=== PATIENT | female | born 1975 | race Two or more races ===

== ENCOUNTER 2017-02-21 22:34 | Emergency (ER) | payer BC, SELFPAY ==
--- NOTE | 2017-02-22 00:02 | EDM.PDOC ---
ED HPI GENERAL MEDICAL PROBLEM - General Chief Complaint: ENT Problem Stated Complaint: PT HAS FISH BONE STUCK IN THROAT Time Seen by Provider: 02/21/17 22:49 Source of Information: Reports: Patient History Limitations: Reports: No Limitations - History of Present Illness INITIAL COMMENTS - FREE TEXT/NARRATIVE: HISTORY AND PHYSICAL: History of present illness: [41-year-old female now presents emergency department complaining of foreign body sensation in her throat. Patient states she was eating fish earlier tonight felt discomfort in her throat and thinks she has a fish bone there. Patient has no shortness of breath or difficulty breathing. Patient stable swallow with minimal discomfort. No voice changes no prior history of esophageal obstruction or difficulties] Review of systems: As per history of present illness and below otherwise all systems reviewed and negative. Past medical history: As per history of present illness and as reviewed below otherwise noncontributory. Surgical history: As per history of present illness and as reviewed below otherwise noncontributory. Social history: No reported history of drug or alcohol abuse. Family history: As per history of present illness and as reviewed below otherwise noncontributory. Physical exam: Well-appearing patient alert no stridor no tachypnea normal oropharynx with no visible foreign body no neck or throat asymmetry. Normal voice and tolerating secretions without difficulty HEENT: Normocephalic, atraumatic, pupils normal and symmetrical, supple neck, no meningismus, normal color Lungs: Normal and symmetrical chest wall excursion bilateral with no tachypnea or increased work of breathing, grossly normal chest exam. Clear lungs laterally , no stridor Heart: No tachycardia in triage Abdomen: Normal-appearing, nondistended, no visible mass or asymmetry Pelvis: Normal-appearing Genitourinary: Deferred Rectal exam: Deferred Extremities: Atraumatic, normal use and range of motion, no visible evidence of gross neurovascular compromise Neuro: Awake, alert, oriented. Normal and appropriate mental status. Cranial nerves grossly unremarkable. Motor function normal. Nonfocal neurologic exam. Diagnostics: [] Therapeutics: [] Impression: [] Plan: [Signs and symptoms consistent with suspected pharyngeal irritation with foreign body sensation. Discussed with patient and family possibility of a fish bone foreign body however this is typically not the case and her symptoms for most people are associated with a mild abrasion or injury to the oropharynx or esophagus. She has no respiratory symptoms whatsoever as well appearing. Soft tissue x-ray of the neck unremarkable. Patient and agree with outpatient follow-up and are aware to follow-up with our ear nose and throat doctor tomorrow] and to return immediately for new severe or worsening symptoms. Definitive disposition and diagnosis as appropriate pending reevaluation and review of above. Throat Pain Score (Numeric/FACES): 7 - Related Data Allergies Allergy/AdvReac Type Severity Reaction Status Date / Time aspirin Allergy Itching Verified 02/21/17 22:44 Home Meds: Home Meds . 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: , Spontaneous Psychiatric History: Reports: Anxiety Endocrine/Metabolic History: Reports: Diabetes, Gestational - Past Surgical History Head Surgeries/Procedures: Reports: None Female Surgical History: Reports: Section Social & Family History - Family History Family Medical History: Unobtainable - Tobacco Use Smoking Status *Q: Never Smoker Years of Tobacco use: 20 Packs/Tins Daily: 0.5 Used Tobacco, but Quit: Yes Month Tobacco Last Used: quit smoking 2 yrs ago - Alcohol Use Days Per Week of Alcohol Use: 0 - Recreational Drug Use Recreational Drug Use: No ED ROS GENERAL - Review of Systems Review Of Systems: See Below (Per history of present illness) ED EXAM, GENERAL - Physical Exam Exam: See Below (Per history of present illness) Course - Vital Signs Last Recorded V/S: Last Vital Signs Temp 36.2 C 02/21/17 22:41 Pulse 99 02/22/17 00:05 Resp 17 02/22/17 00:05 BP 127/81 02/22/17 00:05 Pulse Ox 98 02/22/17 00:05 - Orders/Labs/Meds Orders: Active Orders 24 hr Category Date Time Status Neck Soft Tissue [CR] Stat Exams 02/21/17 22:40 Taken Departure - Departure Time of Disposition: 23:58 Disposition: Home, Self-Care 01 Condition: good Clinical Impression: Foreign body sensation in throat - Discharge Information Instructions: Medical Screening Exam Referrals: PCP,None [Primary Care Provider] - Forms: ED Department Discharge Additional Instructions: You have foreign body sensation in your throat. It is possible that you could have a fishbone stuck in your throat however that is typically not the case in this situation. Most times of bone has caused a scratch or irritation in the throat and it's very uncomfortable as the throat is quite sensitive. Many patients believe they have a foreign body such as a fishbone in their throat when typically they've swallowed a completely after it caused an abrasion on the way down the esophagus. An x-ray tonight did not show any visible bone in your throat. Follow-up with our ear nose and throat doctor Dr. Isabelle Torres. Call at 9 AM for an appointment tomorrow for reevaluation and nasopharyngeal laryngoscopy as needed. Nasopharyngeal laryngoscopy is with a doctor puts a very small tube in your nose and then looks down the back of your throat to see if a foreign body might be there. Return to the emergency department for new severe or worsening symptoms particularly if you feel like you breathed something into your lungs. - My Orders Last 24 Hours: My Active Orders 02/21/17 22:40 Neck Soft Tissue [CR] Stat - Assessment/Plan Last 24 Hours: My Active Orders 02/21/17 22:40 Neck Soft Tissue [CR] Stat
[2017-02-22 00:10] VITALS: BP 127/81
--- NOTE | 2017-02-22 11:53 | CR ---
EXAM DATE: 02/21/17 PATIENT'S AGE: 41 Patient: ANTONINA SUBRAMANIAN Facility: [place], [place] Site . Site : [id number] Study: XRay ST Neck [id number] 11:23:30 PM Ordering Physician: Doctor Crowder Final Report: Soft tissue neck. 2 VIEWS INDICATION: Possible foreign body. IMPRESSION: Prevertebral soft tissues and airway are unremarkable. Prominent laryngeal calcification. No definite radiodense foreign body is suggested. Incidental small cervical ribs. Dictated by Tristian Gonzalez MD @ Feb 21 2017 11:29PM (Electronic Signature) Report Signed by Proxy. GAIL
== END 2017-02-22 00:07 | disposition home or self-care (01) ==
LOC: MW.ED 22:34
DX: R09.89 Other specified symptoms and signs involving the circulatory and respiratory systems (principal); F41.9 Anxiety disorder, unspecified; Z87.891 Personal history of nicotine dependence; Z88.6 Allergy status to analgesic agent
CPT/HCPCS: 70360; 70360-26; 99282; 99283

== ENCOUNTER 2018-06-16 23:46 | Observation (INO) | payer BC ==
--- NOTE | 2018-06-17 00:23 | EDM.PDOC ---
ED HPI GENERAL MEDICAL PROBLEM - General Chief Complaint: General Stated Complaint: PT HAS BODY PAIN Time Seen by Provider: 06/16/18 23:52 Source of Information: Reports: Patient History Limitations: Reports: No Limitations - History of Present Illness INITIAL COMMENTS - FREE TEXT/NARRATIVE: HISTORY AND PHYSICAL: History of present illness: 42-year-old female presenting to the emergency department with chief complaint of fever, chills and generalized body aches 4 hours. Patient states that this evening she began to have fever, chills, nausea and generalized body aches. Denies vomiting or belly pain. This all started approximately 4 hours ago. States that she did take Tylenol secondary to a headache. She is also complaining of mild sore throat. She does have a history of migraine. She denies any abdominal pain, productive cough, or neck pain. Patient states she is allergic to aspirin but takes no other general medications and is generally healthy. Currently denies any chest pain, palpitations, shortness of breath, syncopal episodes, focal neurologic deficits. On exam posterior pharynx is mildly erythematous with some mild tonsillar swelling. Neck is supple with mild submandibular lymphadenopathy. Note other acute findings. Review of systems: As per history of present illness and below otherwise all systems reviewed and negative. Past medical history: As per history of present illness and as reviewed below otherwise noncontributory. Surgical history: As per history of present illness and as reviewed below otherwise noncontributory. Social history: No reported history of drug or alcohol abuse. Family history: As per history of present illness and as reviewed below otherwise noncontributory. Physical exam: HEENT: Atraumatic, normocephalic, pupils reactive, negative for conjunctival pallor or scleral icterus, mucous membranes moist, mild posterior pharynx erythema and tonsillar swelling., neck supple, nontender, trachea midline. Lungs: Clear to auscultation, breath sounds equal bilaterally, chest nontender. Heart: S1S2, regular, negative for clicks, rubs, or JVD. Abdomen: Soft, nondistended, nontender. Negative for masses or hepatosplenomegaly. Negative for costovertebral tenderness. Pelvis: Stable nontender. Genitourinary: Deferred. Rectal: Deferred. Extremities: Atraumatic, negative for cords or calf pain. Neurovascular unremarkable. Neuro: Awake, alert, oriented. Cranial nerves II through XII unremarkable. Cerebellum unremarkable. Motor and sensory unremarkable throughout. Exam nonfocal. Diagnostics: CBC, CMP, chest x-ray, rapid strep, influenza Therapeutics: 1 L normal saline, 8 mg IV Zofran 1, 650 mg Tylenol 1, 2 mg IV morphine 1, 1 g Rocephin IV, azithromycin/Z-Brad Impression: Generalized body aches Strep pharyngitis Plan: Patient did have leukocytosis of 16 K, CMP, chest x-ray, and influenza were unremarkable. Patient was given 1 g of Rocephin initially secondary to leukocytosis. Patient had good improvement after above therapy and was discharged in good condition with a prescription for azithromycin and instructed to follow-up with a primary care provider and return to emergency department if any new or worsening symptoms. Definitive disposition and diagnosis as appropriate pending reevaluation and review of above. body Pain Score (Numeric/FACES): 10 - Related Data Allergies Allergy/AdvReac Type Severity Reaction Status Date / Time aspirin Allergy Itching Verified 02/21/17 22:44 Home Meds: Home Meds . 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 ED EXAM, GENERAL - Physical Exam Exam: See Below Course - Vital Signs Last Recorded V/S: Last Vital Signs Temp 100 F 06/17/18 02:28 Pulse 124 H 06/17/18 02:28 Resp 20 06/17/18 02:28 BP 100/55 L 06/17/18 02:28 Pulse Ox 94 L 06/17/18 02:28 - Orders/Labs/Meds Orders: Active Orders 24 hr Category Date Time Status CXR [Chest 2V] [CR] Stat Exams 06/17/18 01:00 Taken CULTURE BLOOD [BC] Stat Lab 06/17/18 01:20 Received CULTURE BLOOD [BC] Stat Lab 06/17/18 01:30 Received Blood Culture x2 Reflex Set [OM.PC] Stat Oth 06/17/18 01:00 Ordered Labs: Laboratory Tests 06/17/18 06/17/18 06/17/18 Range/Units 00:15 00:15 01:30 WBC 16.02 H (4.0-11.0) K/uL RBC 4.44 (4.30-5.90) M/uL Hgb 12.7 (12.0-16.0) g/dL Hct 38.9 (36.0-46.0) % MCV 87.6 (80.0-98.0) fL MCH 28.6 (27.0-32.0) pg MCHC 32.6 (31.0-37.0) g/dL RDW Std Deviation 38.2 (28.0-62.0) fl RDW Coeff of Ashley 12 (11.0-15.0) % Plt Count 286 (150-400) K/uL MPV 9.90 (7.40-12.00) fL Neut % (Auto) 85.2 H (48.0-80.0) % Lymph % (Auto) 7.8 L (16.0-40.0) % Patrick % (Auto) 5.6 (0.0-15.0) % Eos % (Auto) 1.3 (0.0-7.0) % Baso % (Auto) 0.1 (0.0-1.5) % Neut # (Auto) 13.7 H (1.4-5.7) K/uL Lymph # (Auto) 1.3 (0.6-2.4) K/uL Patrick # (Auto) 0.9 H (0.0-0.8) K/uL Eos # (Auto) 0.2 (0.0-0.7) K/uL Baso # (Auto) 0.0 (0.0-0.1) K/uL Lactate 1.3 (0.20-2.00) mmol/L Sodium 136 (136-145) mmol/L Potassium 3.6 (3.5-5.1) mmol/L Chloride 101 (98-107) mmol/L Carbon Dioxide 23.6 (21.0-32.0) mmol/L BUN 16 (7.0-18.0) mg/dL Creatinine 0.9 (0.6-1.0) mg/dL Est Cr Clr Drug Dosing TNP Estimated GFR (MDRD) > 60.0 ml/min Glucose 128 H (74-106) mg/dL Calcium 9.5 (8.5-10.1) mg/dL Total Bilirubin 0.4 (0.2-1.0) mg/dL AST 9 L (15-37) IU/L ALT 18 (14-63) IU/L Alkaline Phosphatase 86 (46-116) U/L Total Protein 8.0 (6.4-8.2) g/dL Albumin 3.9 (3.4-5.0) g/dL Globulin 4.1 H (2.0-3.5) g/dL Albumin/Globulin Ratio 1.0 L (1.3-2.8) Meds: Medications Discontinued Medications Generic Name Dose Route Start Last Admin Trade Name Freq PRN Reason Stop Dose Admin Acetaminophen 650 mg 06/17/18 00:31 06/17/18 00:37 Tylenol PO 06/17/18 00:32 650 mg NOW ONE Administration Sodium Chloride 1,000 mls @ 999 mls/hr 06/17/18 00:30 06/17/18 00:32 Normal Saline IV 06/17/18 01:30 999 mls/hr STAT ONE Administration Ceftriaxone Sodium/Dextrose 1 50 mls @ 100 mls/hr 06/17/18 01:01 06/17/18 01: 51 gm/ Premix IV 06/17/18 01:30 100 mls/hr ONETIME ONE Administration Morphine Sulfate 2 mg 06/17/18 02:03 06/17/18 02:38 Morphine IVPUSH 06/17/18 02:04 2 mg ONETIME ONE Administration Ondansetron HCl 8 mg 06/17/18 00:30 06/17/18 00:36 Zofran IVPUSH 06/17/18 00:31 8 mg ONETIME ONE Administration Departure - Departure Time of Disposition: 03:38 Disposition: Home, Self-Care 01 Condition: Good Clinical Impression: Strep pharyngitis, Sore throat, Generalized body aches - Discharge Information Referrals: PCP,None [Primary Care Provider] - Forms: ED Department Discharge Additional Instructions: My general discharge The following information is given to patients seen in the emergency department who are being discharged to home. This information is to outline your options for follow-up care. We provide all patients seen in our emergency department with a follow-up referral. The need for follow-up, as well as the timing and circumstances, are variable depending upon the specifics of your emergency department visit. If you don't have a primary care physician on staff, we will provide you with a referral. We always advise you to contact your personal physician following an emergency department visit to inform them of the circumstance of the visit and for follow-up with them and/or the need for any referrals to a consulting specialist. The emergency department will also refer you to a specialist when appropriate. This referral assures that you have the opportunity for follow-up care with a specialist. All of these measure are taken in an effort to provide you with optimal care, which includes your follow-up. Under all circumstances we always encourage you to contact your private physician who remains a resource for coordinating your care. When calling for follow-up care, please make the office aware that this follow-up is from your recent emergency room visit. If for any reason you are refused follow-up, please contact the [facility] Emergency Department at and asked to speak to the emergency department charge nurse. [facility] [address] [place] [id number] Please call above number this morning to follow-up with a primary care provider. Be sure to tell them that you were seen in the emergency department and they wish for you to be seen as soon as possible. Take medication as prescribed. Return to emergency department if any new or worsening symptoms. - My Orders Last 24 Hours: My Active Orders 06/17/18 01:00 CXR [Chest 2V] [CR] Stat Blood Culture x2 Reflex Set [OM.PC] Stat 06/17/18 01:20 CULTURE BLOOD [BC] Stat 06/17/18 01:30 CULTURE BLOOD [BC] Stat - Assessment/Plan Last 24 Hours: My Active Orders 06/17/18 01:00 CXR [Chest 2V] [CR] Stat Blood Culture x2 Reflex Set [OM.PC] Stat 06/17/18 01:20 CULTURE BLOOD [BC] Stat 06/17/18 01:30 CULTURE BLOOD [BC] Stat
[2018-06-17] MEDS ORDERED: Ondansetron 4 MG/2 ML SDV IVPUSH ONE (00:30)
[2018-06-17] MEDS ORDERED: Sodium Chloride 0.9% 1,000 ML IV ONE ×3 (00:30→06:16)
[2018-06-17] MEDS ORDERED: Acetaminophen 325 MG Tab PO ONE ×2 (00:31→05:44)
[2018-06-17 00:48] LABS: CHLORIDE,CL 101 mmol/L (98-107); SODIUM,NA 136 mmol/L (136-145)
[2018-06-17] MEDS ORDERED: cefTRIAXone 1 GM in Premix Bag 1 BAG IV ONE (01:01)
[2018-06-17] MEDS ORDERED: Morphine 2 MG/ML Syringe IVPUSH ONE ×2 (02:03→06:36)
[2018-06-17] MEDS ORDERED: Ondansetron 4 MG/2 ML SDV IVPUSH PRN (08:25)
--- NOTE | 2018-06-17 08:34 | PCM.HP ---
H&P History of Present Illness - General Date of Service: 06/17/18 Admit Problem/Dx: Admission Diagnosis/Problem Admission Diagnosis/Problem Sepsis Source of Information: Patient History Limitations: Reports: No Limitations - History of Present Illness Initial Comments - Free Text/Narative: 42F with no known past medical history to her knowledge that presented to the ER with a chief complaint of generalized pain, fever, weakness, sore throat. She tells me that [facility] when she began to experience chills through her body and was having a hard time walking secondary to weakness. She also endorses nausea but hasn't vomited. She went to the ER where: ER Course: +Strep screen, negative for influenza CBC - WBC 16k Lactate - 1.3 (negative) Glucose - 128 UA - +Occult blood, tells me she is on day 4 of her menstrual cycle. CXR - unremarkable Acetaminophen 650mg PO x2 Rocephin 1g IV x1 Morphine 2mg IV x1 Zofran 8mg IV x1 IV NS 1L Bolus x3 Admitted secondary to tachycardia, hypotension, pain control body Pain Score (Numeric/FACES): 10 - Related Data Allergies/Adverse Reactions: Allergies Allergy/AdvReac Type Severity Reaction Status Date / Time aspirin Allergy Itching Verified 02/21/17 22:44 Home Medications: Home Meds . [No Known Home Meds] 02/21/17 [History] Past Medical History - Past Health History Medical/Surgical History: Denies Medical/Surgical History Gastrointestinal History: Reports: Other (See Below) Other Gastrointestinal History: occasional heartburn with SMOKE EATER History: Reports: , Spontaneous Psychiatric History: Reports: Anxiety Endocrine/Metabolic History: Reports: Diabetes, Gestational - Past Surgical History Head Surgeries/Procedures: Reports: None Female Surgical History: Reports: Section Social & Family History - Family History Family Medical History: Unobtainable - Tobacco Use Smoking Status *Q: Never Smoker - Recreational Drug Use Recreational Drug Use: No H&P Review of Systems - Review of Systems: Review Of Systems: ROS reveals no pertinent complaints other than HPI. Exam - Exam Exam: See Below - Vital Signs Vital Signs: Last Vital Signs Temp 37.6 C 06/17/18 08:16 Pulse 130 H 06/17/18 08:16 Resp 16 06/17/18 08:16 BP 99/54 L 06/17/18 08:16 Pulse Ox 93 L 06/17/18 08:16 Weight: 73.21 kg - Exam General: Alert, Oriented, 4 HEENT: Conjunctiva Clear, EACs Clear, EOMI, Hearing Intact, Nares Patent, Normal Nasal Septum, Posterior Pharynx Clear, TMs Clear, Other (erythematous oral pharynx without exudate, mildly enlarged tonsils), PERRLA Neck: Supple, Trachea Midline, 2 Lungs: Clear to Auscultation, Normal Respiratory Effort Cardiovascular: Regular Rate, Regular Rhythm GI/Abdominal Exam: Normal Bowel Sounds, Soft, Non-Tender, No Organomegaly, No Distention, No Abnormal Bruit, No Mass, Pelvis Stable (Female) Exam: Normal External Exam, Normal Speculum Exam, Normal Bimanual Exam Rectal (Female) Exam: Normal Exam, Normal Rectal Tone Back Exam: Normal Inspection, Full Range of Motion, NT Extremities: Normal Inspection, Normal Range of Motion, Non-Tender, No Pedal Edema, Normal Capillary Refill Peripheral Pulses: 2+: Dorsalis Pedis (L), Dorsalis Pedis (R) Skin: Warm. No: Rash Neurological: Cranial Nerves Intact Neuro Extensive - Mental Status: Alert, Oriented x3 Neuro Extensive - Motor, Sensory, Reflexes: CN II-XII Intact Psychiatric: Alert, Normal Affect, Normal Mood - Patient Data Lab Results Last 24 hrs: Laboratory Results - last 24 hr 06/17/18 06/17/18 06/17/18 Range/Units 00:15 00:15 01:30 WBC 16.02 H (4.0-11.0) K/uL RBC 4.44 (4.30-5.90) M/uL Hgb 12.7 (12.0-16.0) g/dL Hct 38.9 (36.0-46.0) % MCV 87.6 (80.0-98.0) fL MCH 28.6 (27.0-32.0) pg MCHC 32.6 (31.0-37.0) g/dL RDW Std Deviation 38.2 (28.0-62.0) fl RDW Coeff of Ashley 12 (11.0-15.0) % Plt Count 286 (150-400) K/uL MPV 9.90 (7.40-12.00) fL Neut % (Auto) 85.2 H (48.0-80.0) % Lymph % (Auto) 7.8 L (16.0-40.0) % [place] % (Auto) 5.6 (0.0-15.0) % Eos % (Auto) 1.3 (0.0-7.0) % Baso % (Auto) 0.1 (0.0-1.5) % Neut # (Auto) 13.7 H (1.4-5.7) K/uL Lymph # (Auto) 1.3 (0.6-2.4) K/uL [place] # (Auto) 0.9 H (0.0-0.8) K/uL Eos # (Auto) 0.2 (0.0-0.7) K/uL Baso # (Auto) 0.0 (0.0-0.1) K/uL Lactate 1.3 (0.20-2.00) mmol/L Sodium 136 (136-145) mmol/L Potassium 3.6 (3.5-5.1) mmol/L Chloride 101 (98-107) mmol/L Carbon Dioxide 23.6 (21.0-32.0) mmol/L BUN 16 (7.0-18.0) mg/dL Creatinine 0.9 (0.6-1.0) mg/dL Est Cr Clr Drug Dosing TNP Estimated GFR (MDRD) > 60.0 ml/min Glucose 128 H (74-106) mg/dL Calcium 9.5 (8.5-10.1) mg/dL Total Bilirubin 0.4 (0.2-1.0) mg/dL AST 9 L (15-37) IU/L ALT 18 (14-63) IU/L Alkaline Phosphatase 86 (46-116) U/L Total Protein 8.0 (6.4-8.2) g/dL Albumin 3.9 (3.4-5.0) g/dL Globulin 4.1 H (2.0-3.5) g/dL Albumin/Globulin Ratio 1.0 L (1.3-2.8) Urine Color Urine Appearance Urine pH (5.0-8.0) Ur Specific [place] (1.001-1.035) Urine Protein (NEGATIVE) mg/dL Urine Glucose (UA) (NEGATIVE) mg/dL Urine Ketones (NEGATIVE) mg/dL Urine Occult Blood (NEGATIVE) Urine Nitrite (NEGATIVE) Urine Bilirubin (NEGATIVE) Urine Urobilinogen (<2.0) EU/dL Ur Leukocyte Esterase (NEGATIVE) Urine RBC (0-2/HPF) Urine WBC (0-5/HPF) Ur Epithelial Cells (NONE-FEW) Urine Bacteria (NEGATIVE) 06/17/18 Range/Units 06:28 WBC (4.0-11.0) K/uL RBC (4.30-5.90) M/uL Hgb (12.0-16.0) g/dL Hct (36.0-46.0) % MCV (80.0-98.0) fL MCH (27.0-32.0) pg MCHC (31.0-37.0) g/dL RDW Std Deviation (28.0-62.0) fl RDW Coeff of Ashley (11.0-15.0) % Plt Count (150-400) K/uL MPV (7.40-12.00) fL Neut % (Auto) (48.0-80.0) % Lymph % (Auto) (16.0-40.0) % [place] % (Auto) (0.0-15.0) % Eos % (Auto) (0.0-7.0) % Baso % (Auto) (0.0-1.5) % Neut # (Auto) (1.4-5.7) K/uL Lymph # (Auto) (0.6-2.4) K/uL [place] # (Auto) (0.0-0.8) K/uL Eos # (Auto) (0.0-0.7) K/uL Baso # (Auto) (0.0-0.1) K/uL Lactate (0.20-2.00) mmol/L Sodium (136-145) mmol/L Potassium (3.5-5.1) mmol/L Chloride (98-107) mmol/L Carbon Dioxide (21.0-32.0) mmol/L BUN (7.0-18.0) mg/dL Creatinine (0.6-1.0) mg/dL Est Cr Clr Drug Dosing Estimated GFR (MDRD) ml/min Glucose (74-106) mg/dL Calcium (8.5-10.1) mg/dL Total Bilirubin (0.2-1.0) mg/dL AST (15-37) IU/L ALT (14-63) IU/L Alkaline Phosphatase (46-116) U/L Total Protein (6.4-8.2) g/dL Albumin (3.4-5.0) g/dL Globulin (2.0-3.5) g/dL Albumin/Globulin Ratio (1.3-2.8) Urine Color YELLOW Urine Appearance CLEAR Urine pH 5.5 (5.0-8.0) Ur Specific [place] 1.015 (1.001-1.035) Urine Protein NEGATIVE (NEGATIVE) mg/dL Urine Glucose (UA) NEGATIVE (NEGATIVE) mg/dL Urine Ketones NEGATIVE (NEGATIVE) mg/dL Urine Occult Blood LARGE H (NEGATIVE) Urine Nitrite NEGATIVE (NEGATIVE) Urine Bilirubin NEGATIVE (NEGATIVE) Urine Urobilinogen 0.2 (<2.0) EU/dL Ur Leukocyte Esterase NEGATIVE (NEGATIVE) Urine RBC 1-2 (0-2/HPF) Urine WBC 1-3 (0-5/HPF) Ur Epithelial Cells MODERATE (NONE-FEW) Urine Bacteria FEW (NEGATIVE) Result Diagrams: 06/17/18 00:15 06/17/18 00:15 Kit Results Last 24 hrs: Microbiology 06/17/18 00:44 Influenza Type A Antigen Screen - Final Nasopharyngeal Swab NEGATIVE INFLUENZA A VIRUS AG Influenza Type B Antigen Screen - Final NEGATIVE INFLUENZA B VIRUS AG 06/17/18 00:41 Group A Streptococcus Rapid Screen - Final Throat Positive Strep A Screen Problem List Initiated/Reviewed/Updated: Yes Orders Last 24hrs: Active Orders 24 hr Category Date Time Status Admission Status [Patient Status] [ADT] Routine ADT 06/17/18 06:55 Active Oxygen Therapy [RC] PRN Care 06/17/18 08:25 Ordered Up ad Elizabeth [RC] ASDIRECTED Care 06/17/18 08:25 Ordered VTE/DVT Education [RC] PER UNIT ROUTINE Care 06/17/18 08:25 Ordered Vital Signs [RC] Q4H Care 06/17/18 08:25 Ordered Regular Diet [DIET] Diet 06/17/18 Lunch Ordered CXR [Chest 2V] [CR] Stat Exams 06/17/18 01:00 Taken BASIC METABOLIC PANEL,BMP [CHEM] AM Lab 06/18/18 05:11 Ordered CBC WITH AUTO DIFF [HEME] AM Lab 06/18/18 05:11 Ordered CULTURE BLOOD [BC] Stat Lab 06/17/18 01:20 Received CULTURE BLOOD [BC] Stat Lab 06/17/18 01:30 Received CULTURE URINE [RM] Stat Lab 06/17/18 06:28 Received Acetaminophen [Tylenol] Med 06/17/18 08:25 Ordered 650 mg PO Q4H PRN Enoxaparin [Lovenox] Med 06/17/18 08:30 Ordered 40 mg SUBCUT Q24H Morphine Med 06/17/18 08:25 Ordered 2 mg IVPUSH Q2H PRN Ondansetron [Zofran] Med 06/17/18 08:25 Ordered 4 mg IVPUSH Q4H PRN Sodium Chloride 0.9% [Normal Saline] 1,000 ml Med 06/17/18 08:30 Ordered IV ASDIRECTED cefTRIAXone [Rocephin in Dextrose,Iso-Osm 1 GM/50 ML] 1 Med 06/17/18 08:30 Ordered gm Premix Bag 1 bag IV Q24H Blood Culture x2 Reflex Set [OM.PC] Stat Oth 06/17/18 01:00 Ordered Sequential Compression Device [OM.PC] Per Unit Routine Oth 06/17/18 08:25 Ordered Resuscitation Status Routine Resus Stat 06/17/18 08:25 Ordered Medication Orders Acetaminophen (Tylenol) 650 mg PO Q4H PRN PRN Reason: Pain (Mild 1-3)/fever Enoxaparin Sodium (Lovenox) 40 mg SUBCUT Q24H HOWARD Sodium Chloride (Normal Saline) 1,000 mls @ 150 mls/hr IV ASDIRECTED HOWARD Morphine Sulfate (Morphine) 2 mg IVPUSH Q2H PRN PRN Reason: Pain (severe 7-10) Stop: 06/18/18 08:26 Ondansetron HCl (Zofran) 4 mg IVPUSH Q4H PRN PRN Reason: Nausea Assessment/Plan Comment:: Assessment: #1. Strep pharyngitis #2. Tachycardia #3. Hypotension #4. Subjective fever, chills, nausea #5. Leukocytosis secondary to #1 Plan: #1. Admit to the floor for observation. Vital signs per floor routine. Lovenox + SCD for DVT prophylaxis. Cardiac telemetry. Regular diet. Full code. #2. IVNS 150ml/h #3. Morphine 2mg IV q2h PRN pain #4. Zofran 4mg IV q4h PRN nausea #5. Rocephin 1g q24h - received dose in ER #6. Anticipate dc 1-2 days.
[2018-06-17] MEDS: Acetaminophen 325 MG Tab PO PRN ×4 (08:42→20:36)
[2018-06-17] MEDS: Morphine 2 MG/ML Syringe IVPUSH PRN ×2 (08:42→12:46)
[2018-06-17] MEDS: Enoxaparin 40 MG/0.4 ML Syringe SUBCUT SCH (09:20)
[2018-06-17] MEDS: Sodium Chloride 0.9% 1,000 ML IV SCH ×2 (12:47→18:15)
--- NOTE | 2018-06-17 14:30 | PCM.SN ---
- Free Text/Narrative Note: Patient continues to spike temperature and complain of generalized myalgias. Will start tamiflu with concerns of influenza, swab test negative but may be falsely negative. Will treat now. HIV/[place] screen negative. F/u on blood cultures obtained when patient spiked temperature.
[2018-06-17] MEDS: Oseltamivir 75 MG Cap PO SCH ×2 (14:42→20:36)
[2018-06-17] MEDS: Ibuprofen 600 MG Tab PO PRN (14:42)
--- NOTE | 2018-06-17 16:39 | CR ---
EXAM DATE: 06/17/18 PATIENT'S AGE: 42 Patient: ANTONINA SUBRAMANIAN Facility: [place], [place] Site . Site : [id number] Study: XRay Chest -06/17/2018 1:23:54 AM Ordering Physician: Moustapha Meng Final Report: INDICATION: Cough/fever TECHNIQUE: Chest 2 views. COMPARISON: None. FINDINGS: Cardiovascular and mediastinum: Heart size and vasculature are normal in caliber and appearance. Mediastinum is within normal limits. Lungs and pleural spaces: Lungs are clear. No sign of infiltrate or mass. No sign of pleural effusion. No pneumothorax. Bones and soft tissues: No significant findings. IMPRESSION: Unremarkable chest. Dictated by: Matty Julien MD @ 06/17/2018 01:35:58 (Electronic Signature) Report Signed by Proxy. [facility]
[2018-06-18] MEDS: Sodium Chloride 0.9% 1,000 ML IV SCH (01:25)
[2018-06-18] MEDS: Ibuprofen 600 MG Tab PO PRN ×2 (01:26→09:36)
[2018-06-18] MEDS ORDERED: cefTRIAXone 1 GM in Sodium Chloride 0.9% 50 ML IV SCH (02:00)
[2018-06-18] MEDS: Acetaminophen 325 MG Tab PO PRN ×2 (05:26→12:22)
[2018-06-18 06:48] LABS: CHLORIDE,CL 107 mmol/L (98-107); SODIUM,NA 142 mmol/L (136-145)
[2018-06-18] MEDS ORDERED: Potassium Chloride 20 MEQ Tab.ER PO ONE ×2 (08:08→09:14)
[2018-06-18] MEDS ORDERED: Sodium Chloride 0.9% with KCl 1,000 ML IV ONE (08:30)
[2018-06-18] MEDS: Oseltamivir 75 MG Cap PO SCH (08:44)
[2018-06-18] MEDS: Enoxaparin 40 MG/0.4 ML Syringe SUBCUT SCH (08:45)
[2018-06-18 09:57] VITALS: BP 106/62
--- NOTE | 2018-06-18 10:47 | PCM.DCSUM1 ---
Discharge Summary - Hospital Course Free Text/Narrative:: Admission date: 06/17/2018 Discharge date: 06/18/2018 Admission dx: #1. Strep pharyngitis #2. Tachycardia #3. Hypotension #4. Leukocytosis #5. Myalgias, fever, nausea, headache Discharge dx: #1. Strep pharyngitis #2. Tachycardia #3. Hypotension - resolved #4. Leukocytosis - improved #5. Myalgias, fever, nausea, headache - improved #6. Possible migraine disorder Hospital course: 42F with no known past hx that presented to the ER with the above complaints found to be +strep pharyngitis admitted for concerns of sepsis given tachycardia and hypotension despite IV fluids. Patient was admitted for observation. On my exam, patient complained primarily of fever, myalgias that began when she went to [facility]. She tested negative for influenza but clinically I felt her picture fit very well with it so I started her on tamiflu. Next morning she wanted to go home saying she felt much better. She denied any palpitations. DC meds: Cefdinir 300mg PO BID x9 days Tamiflu 75mg PO BID x4 days Excedrin PRN for migraine - I think she may have an underlying migraine disorder. She didn't currently have a migraine on time of discharge but was requesting something for this. She has an appointment with me in clinic where I plan on investigating further, after this acute episode resolves to see if migraines persist. - Discharge Data Discharge Date: 06/18/18 Discharge Disposition: Home, Self-Care 01 Condition: Fair - Patient Instructions Diet: Usual Diet as Tolerated Activity: As Tolerated Driving: May Drive Today Showering/Bathing: May Shower Notify Provider of: Fever, Increased Pain, Nausea and/or Vomiting - Discharge Plan Prescriptions/Med Rec: Acetaminophen/Caffeine [Excedrin Tension Headache Cplt] 1 tab PO Q6H PRN #20 tablet PRN Reason: Headache Cefdinir [Omnicef] 300 mg PO Q12H 9 Days #18 cap Oseltamivir [Tamiflu] 75 mg PO BID 4 Days #8 cap Home Medications: Home Meds Acetaminophen/Caffeine [Excedrin Tension Headache Cplt] 1 tab PO Q6H PRN #20 tablet 06/18/18 [Rx] Cefdinir [Omnicef] 300 mg PO Q12H 9 Days #18 cap 1006/18 [Rx] Oseltamivir [Tamiflu] 75 mg PO BID 4 Days #8 cap 06/18/18 [Rx] Patient Handouts: Cefdinir capsules, Acetaminophen; Aspirin, ASA; Caffeine tablets, caplets, or geltabs, Strep Throat, [id number], Oseltamivir capsules Referrals: Miguel Mariee MD [Resident] - 07/06/18 9:30 am - Patient Data Vitals - Most Recent: Last Vital Signs Temp 36.4 C 06/18/18 08:00 Pulse 107 H 06/18/18 08:00 Resp 16 06/18/18 08:00 BP 106/62 06/18/18 08:00 Pulse Ox 96 06/18/18 08:00 Weight - Most Recent: 73.21 kg I&O - Last 24 hours: Intake & Output 06/17/18 06/18/18 06/18/18 22:59 06:59 14:59 Intake Total 1869 4828 Output Total 3000 Balance 1866 7998 Lab Results - Last 24 hrs: Laboratory Results - last 24 hr 06/17/18 06/17/18 06/18/18 Range/Units 01:00 01:00 05:43 WBC 11.30 H (4.0-11.0) K/uL RBC 3.81 L (4.30-5.90) M/uL Hgb 10.7 L (12.0-16.0) g/dL Hct 33.4 L (36.0-46.0) % MCV 87.7 (80.0-98.0) fL MCH 28.1 (27.0-32.0) pg MCHC 32.0 (31.0-37.0) g/dL RDW Std Deviation 41.5 (28.0-62.0) fl RDW Coeff of Ashley 13 (11.0-15.0) % Plt Count 219 (150-400) K/uL MPV 9.80 (7.40-12.00) fL Neut % (Auto) 80.1 H (48.0-80.0) % Lymph % (Auto) 13.2 L (16.0-40.0) % [place] % (Auto) 5.4 (0.0-15.0) % Eos % (Auto) 1.1 (0.0-7.0) % Baso % (Auto) 0.2 (0.0-1.5) % Neut # (Auto) 9.1 H (1.4-5.7) K/uL Lymph # (Auto) 1.5 (0.6-2.4) K/uL [place] # (Auto) 0.6 (0.0-0.8) K/uL Eos # (Auto) 0.1 (0.0-0.7) K/uL Baso # (Auto) 0.0 (0.0-0.1) K/uL Nucleated RBC % 0.0 /100WBC Nucleated RBCs # 0 K/uL Sodium (136-145) mmol/L Potassium (3.5-5.1) mmol/L Chloride (98-107) mmol/L Carbon Dioxide (21.0-32.0) mmol/L BUN (7.0-18.0) mg/dL Creatinine (0.6-1.0) mg/dL Est Cr Clr Drug Dosing Estimated GFR (MDRD) ml/min Glucose (74-106) mg/dL Calcium (8.5-10.1) mg/dL Monoscreen NEGATIVE (NEG) HIV 1&2 Ag/Ab, 4th Gen 0.1 (<1.0) 06/18/18 Range/Units 05:43 WBC (4.0-11.0) K/uL RBC (4.30-5.90) M/uL Hgb (12.0-16.0) g/dL Hct (36.0-46.0) % MCV (80.0-98.0) fL MCH (27.0-32.0) pg MCHC (31.0-37.0) g/dL RDW Std Deviation (28.0-62.0) fl RDW Coeff of Ashley (11.0-15.0) % Plt Count (150-400) K/uL MPV (7.40-12.00) fL Neut % (Auto) (48.0-80.0) % Lymph % (Auto) (16.0-40.0) % [place] % (Auto) (0.0-15.0) % Eos % (Auto) (0.0-7.0) % Baso % (Auto) (0.0-1.5) % Neut # (Auto) (1.4-5.7) K/uL Lymph # (Auto) (0.6-2.4) K/uL [place] # (Auto) (0.0-0.8) K/uL Eos # (Auto) (0.0-0.7) K/uL Baso # (Auto) (0.0-0.1) K/uL Nucleated RBC % /100WBC Nucleated RBCs # K/uL Sodium 142 (136-145) mmol/L Potassium 2.9 L (3.5-5.1) mmol/L Chloride 107 (98-107) mmol/L Carbon Dioxide 26.3 (21.0-32.0) mmol/L BUN 5 L (7.0-18.0) mg/dL Creatinine 0.7 (0.6-1.0) mg/dL Est Cr Clr Drug Dosing TNP Estimated GFR (MDRD) > 60.0 ml/min Glucose 116 H (74-106) mg/dL Calcium 8.0 L (8.5-10.1) mg/dL Monoscreen (NEG) HIV 1&2 Ag/Ab, 4th Gen (<1.0) KALYAN Results - Last 24 hrs: Microbiology 06/17/18 01:20 Aerobic Blood Culture - Preliminary Blood - Venous NO GROWTH AFTER 1 DAY Anaerobic Blood Culture - Preliminary NO GROWTH AFTER 1 DAY 06/17/18 01:30 Aerobic Blood Culture - Preliminary Blood - Venous - Lab Draw NO GROWTH AFTER 1 DAY Anaerobic Blood Culture - Preliminary NO GROWTH AFTER 1 DAY Med Orders - Current: Current Medications Acetaminophen (Tylenol) 650 mg PO Q4H PRN PRN Reason: Pain (Mild 1-3)/fever Last Admin: 06/18/18 05:26 Dose: 650 mg Enoxaparin Sodium (Lovenox) 40 mg SUBCUT Q24H HOWARD Last Admin: 06/18/18 08:45 Dose: 40 mg Ceftriaxone Sodium 1 gm/ (Sodium Chloride) 50 mls @ 100 mls/hr IV Q24H HOWARD Last Admin: 06/18/18 01:28 Dose: 100 mls/hr Ibuprofen (Motrin) 600 mg PO Q8H PRN PRN Reason: Fever Last Admin: 06/18/18 09:36 Dose: 600 mg Ondansetron HCl (Zofran) 4 mg IVPUSH Q4H PRN PRN Reason: Nausea Oseltamivir Phosphate (Tamiflu) 75 mg PO BID [facility] Last Admin: 06/18/18 08:44 Dose: 75 mg Discontinued Medications Acetaminophen (Tylenol) 650 mg PO NOW ONE Stop: 06/17/18 00:32 Last Admin: 06/17/18 00:37 Dose: 650 mg Acetaminophen (Tylenol) 650 mg PO NOW ONE Stop: 06/17/18 05:45 Last Admin: 06/17/18 05:48 Dose: 650 mg Sodium Chloride (Normal Saline) 1,000 mls @ 999 mls/hr IV STAT ONE Stop: 06/17/18 01:30 Last Admin: 06/17/18 00:32 Dose: 999 mls/hr Ceftriaxone Sodium/Dextrose 1 (gm/ Premix) 50 mls @ 100 mls/hr IV ONETIME ONE Stop: 06/17/18 01:30 Last Admin: 06/17/18 01:51 Dose: 100 mls/hr Sodium Chloride (Normal Saline) 1,000 mls @ 999 mls/hr IV STAT ONE Stop: 06/17/18 04:54 Last Admin: 06/17/18 04:07 Dose: 999 mls/hr Sodium Chloride (Normal Saline) 1,000 mls @ 999 mls/hr IV STAT ONE Stop: 06/17/18 07:16 Last Admin: 06/17/18 06:29 Dose: 999 mls/hr Sodium Chloride (Normal Saline) 1,000 mls @ 150 mls/hr IV ASDIRECTED [facility] Last Admin: 06/18/18 01:25 Dose: 150 mls/hr Potassium Chloride/Sodium Chloride (Normal Saline With 40 Meq Kcl) 1,000 mls @ 999 mls/hr IV ONETIME ONE Stop: 06/18/18 09:30 Last Admin: 06/18/18 08:43 Dose: 999 mls/hr Morphine Sulfate (Morphine) 2 mg IVPUSH ONETIME ONE Stop: 06/17/18 02:04 Last Admin: 06/17/18 02:38 Dose: 2 mg Morphine Sulfate (Morphine) 2 mg IVPUSH ONETIME ONE Stop: 06/17/18 06:37 Last Admin: 06/17/18 07:08 Dose: 2 mg Morphine Sulfate (Morphine) 2 mg IVPUSH Q2H PRN PRN Reason: Pain (severe 7-10) Stop: 06/18/18 08:26 Last Admin: 06/17/18 12:46 Dose: 2 mg Ondansetron HCl (Zofran) 8 mg IVPUSH ONETIME ONE Stop: 06/17/18 00:31 Last Admin: 06/17/18 00:36 Dose: 8 mg Potassium Chloride (Klor-Con M20) 40 meq PO ONETIME ONE Stop: 06/18/18 08:09 Last Admin: 06/18/18 08:43 Dose: 40 meq Potassium Chloride (Klor-Con M20) 40 meq PO ONETIME ONE Stop: 06/18/18 09:15 Last Admin: 06/18/18 09:33 Dose: 40 meq
== END 2018-06-18 12:43 | disposition home or self-care (01) ==
LOC: MW.ED 23:46 → MW.MS 06-17 06:40 → UNDOADMOB 06-17 06:40 → MW.MS 06-17 06:55
PROVIDERS: ADMIT Internal Medicine; ATTEND Internal Medicine
DX: J02.0 Streptococcal pharyngitis (principal); I95.9 Hypotension, unspecified; D72.829 Elevated white blood cell count, unspecified; M79.10 Myalgia, unspecified site; Z79.2 Long term (current) use of antibiotics; Z79.899 Other long term (current) drug therapy; Z88.6 Allergy status to analgesic agent
CPT/HCPCS: 36415; 71046; 80048; 80053; 81001; 82550; 83605; 84132; 85025; 86308; 87040; 87086; 87389; 87804; 87880; A9270; J0696; J1650; J2270; J2405; J3480; J7040; J7050

== ENCOUNTER 2019-03-13 12:45 | Emergency (ER) | payer BC, OTHER ==
[2019-03-13] MEDS ORDERED: Diphtheria,Pertussis(Acell),Tetanus Vaccine 0.5 ML Syringe IM ONE (12:55)
[2019-03-13] MEDS ORDERED: Acetaminophen 325 MG Tab PO ONE (13:10)
--- NOTE | 2019-03-13 13:10 | EDM.PDOC ---
ED HPI GENERAL MEDICAL PROBLEM - General Chief Complaint: Laceration Stated Complaint: CUT FINGER Time Seen by Provider: 03/13/19 12:58 Source of Information: Reports: Patient History Limitations: Reports: No Limitations - History of Present Illness INITIAL COMMENTS - FREE TEXT/NARRATIVE: HISTORY AND PHYSICAL: History of present illness: Patient is a 43-year-old female who presents to the emergency room today with complaints of a laceration to her right third distal digit. She states she was washing a glass when it broke and the ladder resulting in the laceration. She is unsure of her last tetanus update. Denies any other extremity involvement and has no other health concerns. Review of systems: As per history of present illness and below otherwise all systems reviewed and negative. Past medical history: As per history of present illness and as reviewed below otherwise noncontributory. Surgical history: As per history of present illness and as reviewed below otherwise noncontributory. Social history: See social history for further information Family history: As per history of present illness and as reviewed below otherwise noncontributory. Physical exam: General: Well-developed and well-nourished 43-year-old female. Alert and oriented. Nontoxic appearing and in no acute distress. HEENT: Atraumatic, normocephalic, pupils equal and reactive bilaterally, negative for conjunctival pallor or scleral icterus, mucous membranes moist, trachea midline. No drooling or trismus noted. No meningeal signs. No hot potato voice noted. Lungs: Clear to auscultation, breath sounds equal bilaterally, chest nontender. Heart: S1S2, regular rate and rhythm without overt murmur Abdomen: Soft, nondistended, nontender. Skin: 1.5 cm laceration to mid third digit on the palmar surface. Appears to have no tendon involvement. Otherwise skin is intact, warm, dry. No lesions or rashes noted. Extremities: See skin for details, moves all extremities per self without difficulty or deficits. Neurovascular unremarkable. Neuro: Awake, alert, oriented. Cranial nerves II through XII unremarkable. Cerebellum unremarkable. Motor and sensory unremarkable throughout. Exam nonfocal. Notes: Area was cleansed with chlorhexidine. 1% lidocaine was used to anesthetize the lacerated area. Usual and customary procedures were followed for suture placement. 4-0 nylon, #5 interrupted sutures were placed. Patient tolerated well. Tetanus has been updated. Nonstick bacitracin dressing applied. Education was given along with supportive care measures were reviewed and discussed. Voices understanding and is agreeable to plan of care. Denies any further questions or concerns at this time. Diagnostics: None Therapeutics: Tdap, lidocaine, bacitracin dressing, Tylenol Prescription: None Impression: Laceration Plan: 1. Keep the laceration clean and dry. Continue to monitor for signs of improvement. Sutures to be removed in 7-10 days. 2. Tylenol and/or ibuprofen as needed for pain management. 3. Follow-up with your primary caregiver as we discussed. Return to the ED as needed and as discussed. Definitive disposition and diagnosis as appropriate pending reevaluation and review of above. Right Finger-Middle Pain Score (Numeric/FACES): 8 - Related Data Allergies Allergy/AdvReac Type Severity Reaction Status Date / Time aspirin Allergy Itching Verified 03/13/19 12:59 Home Meds: Home Meds . [No Known Home Meds] 03/13/19 [History] Past Medical History - Past Health History Medical/Surgical History: Denies Medical/Surgical History Gastrointestinal History: Reports: Other (See Below) Other Gastrointestinal History: occasional heartburn with [employer] History: Reports: , Spontaneous Psychiatric History: Reports: Anxiety Endocrine/Metabolic History: Reports: Diabetes, Gestational - Past Surgical History Head Surgeries/Procedures: Reports: None Female Surgical History: Reports: Section Social & Family History - Family History Family Medical History: Unobtainable - Tobacco Use Smoking Status *Q: Never Smoker - Caffeine Use Caffeine Use: Reports: Tea - Recreational Drug Use Recreational Drug Use: No ED ROS GENERAL - Review of Systems Review Of Systems: ROS reveals no pertinent complaints other than HPI. ED EXAM, SKIN/RASH Exam: See Below (See dictation) ED SKIN PROCEDURES - Laceration/Wound Repair Right 3rd digit Lac/Wound length In cm: 1.5 Appearance: Subcutaneous, Linear Distal NVT: Neuro & Vascular Intact, No Tendon Injury Anesthetic Type: Local Local Anesthesia - Lidocaine (Xylocaine): 1% Plain Local Anesthetic Volume: 3cc Skin Prep: Chlorhexidine (Hibiciens) Saline Irrigation (cc's): 25 Exploration/Debridement/Repair: Wound Explored, In a Bloodless Field, No Foreign Material Found Closed with: Sutures Suture Size: 4-0 # of Sutures: 5 Suture Type: Nylon, Interrupted, Simple Drain Placement: No Sterile Dressing Applied: Provider Tetanus Status Addressed: Yes Complications: No Course - Vital Signs Last Recorded V/S: Last Vital Signs Temp 97.6 F 03/13/19 12:55 Pulse 104 H 03/13/19 12:55 Resp 18 03/13/19 12:55 BP 150/100 H 03/13/19 12:55 Pulse Ox 95 03/13/19 12:55 - Orders/Labs/Meds Orders: Active Orders 24 hr Category Date Time Status Vaccines to be Administered [RC] PER UNIT ROUTINE Care 03/13/19 12:55 Active Meds: Medications Discontinued Medications Generic Name Dose Route Start Last Admin Trade Name Disha PRN Reason Stop Dose Admin Acetaminophen 650 mg 03/13/19 13:10 Tylenol PO 03/13/19 13:11 NOW ONE Diphtheria/Tetanus/Acell Pertussis 0.5 ml 03/13/19 12:55 03/13/19 13:02 Adacel IM 03/13/19 12:56 0.5 ml .ONCE ONE Administration Lidocaine HCl 5 ml 03/13/19 12:55 03/13/19 13:02 Xylocaine-Mpf 1% INJECT 03/13/19 12:56 5 ml ONETIME ONE Administration Departure - Departure Time of Disposition: 13:15 Disposition: Home, Self-Care 01 Clinical Impression: Laceration - Discharge Information Instructions: Laceration Care, Adult, [id number] Forms: ED Department Discharge Additional Instructions: The following information is given to patients seen in the emergency department who are being discharged to home. This information is to outline your options for follow-up care. We provide all patients seen in our emergency department with a follow-up referral. The need for follow-up, as well as the timing and circumstances, are variable depending upon the specifics of your emergency department visit. If you don't have a primary care physician on staff, we will provide you with a referral. We always advise you to contact your personal physician following an emergency department visit to inform them of the circumstance of the visit and for follow-up with them and/or the need for any referrals to a consulting specialist. The emergency department will also refer you to a specialist when appropriate. This referral assures that you have the opportunity for follow-up care with a specialist. All of these measure are taken in an effort to provide you with optimal care, which includes your follow-up. Under all circumstances we always encourage you to contact your private physician who remains a resource for coordinating your care. When calling for follow-up care, please make the office aware that this follow-up is from your recent emergency room visit. If for any reason you are refused follow-up, please contact the [facility] Emergency Department at and asked to speak to the emergency department charge nurse. [facility] [address] [place] [address] [id number] [address] [address] 1. Keep the laceration clean and dry. Continue to monitor for signs of improvement. Sutures to be removed in 7-10 days. 2. Tylenol and/or ibuprofen as needed for pain management. 3. Follow-up with your primary caregiver as we discussed. Return to the ED as needed and as discussed.
[2019-03-13 13:25] VITALS: BP 124/80
== END 2019-03-13 13:25 | disposition home or self-care (01) ==
LOC: MW.ED 12:45
DX: S61.212A Laceration without foreign body of right middle finger without damage to nail, initial encounter (principal); Z23 Encounter for immunization; W25.XXXA Contact with sharp glass, initial encounter
CPT/HCPCS: 12001; 90471; 90715; 99282; A9270; J2001

== ENCOUNTER 2019-03-23 17:19 | Emergency (ER) | payer BC ==
[2019-03-24 04:19] VITALS: BP 132/75
== END 2019-03-23 18:26 | disposition home or self-care (01) ==
LOC: MW.ED 17:19
DX: Z53.21 Procedure and treatment not carried out due to patient leaving prior to being seen by health care provider (principal)

== ENCOUNTER 2020-07-07 22:29 | Emergency (ER) | payer BC ==
[2020-07-07] MEDS ORDERED: Sodium Chloride 0.9% 2.5 ML Syringe FLUSH PRN (22:53)
[2020-07-07] MEDS ORDERED: Sodium Chloride 0.9% 10 ML Syringe FLUSH PRN (22:53)
[2020-07-07] MEDS ORDERED: Sodium Chloride 0.9% 1,000 ML IV ONE (22:55)
[2020-07-07] MEDS ORDERED: Acetaminophen/HYDROcodone 325-5 MG Tab PO ONE (23:24)
--- NOTE | 2020-07-07 23:25 | EDM.PDOC ---
ED HPI GENERAL MEDICAL PROBLEM - General Chief Complaint: General Stated Complaint: BODY HURTS ALL OVER Time Seen by Provider: 07/07/20 22:31 - History of Present Illness INITIAL COMMENTS - FREE TEXT/NARRATIVE: History of present illness: [] Patient has body aches for 10 days. She has cough for 10 days. She coughs so hard she vomits. She has diarrhea for 10 days. The patient has felt febrile. The patient has not passed out. The patient smoked until 5 years ago. Otherwise enjoys reasonably good health. Review of systems: As per history of present illness and below otherwise all systems reviewed and negative. Past medical history: As per history of present illness and as reviewed below otherwise noncontributory. Surgical history: As per history of present illness and as reviewed below otherwise noncontribut ory. Social history: No reported history of drug or alcohol abuse. Family history: As per history of present illness and as reviewed below otherwise noncontributory. Physical exam: Constitutional - well developed, well-nourished and in no acute distress HEENT - normocephalic, no evidence of trauma - external nose and mouth normal - no mass in neck and no JVD - mucosae moist EYES - full EOM, PERRL, no icterus - no evidence of inflammation, injection, or drainage Respiratory - no respiratory distress, equal bilateral expansion, lungs clear to auscultation and no abnormal lung sounds Cardiovascular - Regular Rhythm with S1 and S2 appreciated and no murmur, gallop or rub. GI - abdomen soft without distension or organomegaly - normal bowel sounds - no guard or rebound Musculoskeletal no gross deformity of long bones or joints - no tenderness, swelling or edema Neurologic - Alert and oriented times four - CN II-XII grossly intact - motor sensory and coordination symmetrically normal Psychiatric - appropriate mood and affect with normal thought content Hematologic - No petechiae or purpura - mucosa appropriate color and sclera not pale - normal nail bed color and refill Integument - no rash or evidence of trauma - normal turgor Diagnostics: [] Therapeutics: [] Impression: [] Plan: [] Definitive disposition and diagnosis as appropriate pending reevaluation and review of above. headache/bodyaches Pain Score (Numeric/FACES): 10 - Related Data Allergies Allergy/AdvReac Type Severity Reaction Status Date / Time aspirin Allergy Itching Verified 07/07/20 22:37 Home Meds: Home Meds Acetaminophen/HYDROcodone [[place] 325-7.5 MG] 1 - 2 tab PO Q6H PRN #12 tab 06/14 03/02 [Rx] Azithromycin [Zithromax] 250 mg PO DAILY #6 tab 07/08/20 [Rx] Past Medical History - Past Health History Medical/Surgical History: Denies Medical/Surgical History Gastrointestinal History: Reports: Other (See Below) Other Gastrointestinal History: occasional heartburn with Genitourinary History: Reports: None 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: , Spontaneous Psychiatric History: Reports: Anxiety Endocrine/Metabolic History: Reports: Diabetes, Gestational Hematologic History: Reports: None Oncologic (Cancer) History: Reports: None - Infectious Disease History Infectious Disease History: Reports: None - Past Surgical History Head Surgeries/Procedures: Reports: None Female Surgical History: Reports: Section Social & Family History - Family History Family Medical History: Unobtainable - Tobacco Use Tobacco Use Status *Q: Never Tobacco User - Caffeine Use Caffeine Use: Reports: Tea - Recreational Drug Use Recreational Drug Use: No ED ROS GENERAL - Review of Systems Review Of Systems: Comprehensive ROS is negative, except as noted in HPI. ED EXAM, GENERAL - Physical Exam Exam: See Below Free Text/Narrative:: My physical exam is in the HPI #1 Interpretation EKG Interpretation Comments: Date Time Time read Rhythm Rate [place] Presence of P wave QRS ST and T QT interval Comparison Impression EKG performed at 07/07/2020 2308 hrs. interpreted at 2313. Sinus tachycardia heart rate 117 VA interval 126 [place] XX 8 QT interval 413. The T waves are quite flat in the anterior leads. There is no prior for comparison. Impression no obvious injury Course - Vital Signs Text/Narrative:: Amendment to the clinical indication for ceftriaxone it is for pneumonia. Patient did well after given pain medicine. Patient had bilateral interstitial infiltrates in the perihilar region. Sent home on antibiotics but warned that she might have a persistent long Covid and the test was not back yet. Last Recorded V/S: Last Vital Signs Temp 97.8 F 07/07/20 22:38 Pulse 110 H 07/08/20 02:00 Resp 18 07/08/20 02:00 BP 94/51 L 07/08/20 02:00 Pulse Ox 95 07/08/20 02:00 - Orders/Labs/Meds Orders: Active Orders 24 hr Category Date Time Status EKG Documentation Completion [RC] AM Care 07/07/20 22:53 Active CORONAVIRUS COVID-19 PCR PHL Stat Lab 07/07/20 23:46 Received CULTURE BLOOD [BC] Stat Lab 07/07/20 23:07 Received CULTURE BLOOD [BC] Stat Lab 07/07/20 23:17 Results Sodium Chloride 0.9% [Normal Saline] 1,000 ml Med 07/08/20 01:42 Active IV .BOLUS Sodium Chloride 0.9% [Saline Flush] Med 07/07/20 22:53 Active 10 ml FLUSH ASDIRECTED PRN Sodium Chloride 0.9% [Saline Flush] Med 07/07/20 22:53 Active 2.5 ml FLUSH ASDIRECTED PRN Blood Culture x2 Reflex Set [OM.PC] Stat Oth 07/07/20 22:57 Ordered Saline Lock Insert [OM.PC] Stat Oth 07/07/20 22:53 Ordered Medication Orders Sodium Chloride (Normal Saline) 1,000 mls @ 999 mls/hr IV .BOLUS ONE Stop: 07/08/20 02:42 Last Admin: 07/08/20 02:03 Dose: 999 mls/hr Documented by: KADIE Sodium Chloride (Saline Flush) 10 ml FLUSH ASDIRECTED PRN PRN Reason: Keep Vein Open Sodium Chloride (Saline Flush) 2.5 ml FLUSH ASDIRECTED PRN PRN Reason: Keep Vein Open Labs: Laboratory Tests 07/07/20 07/07/20 07/07/20 Range/Units 22:57 22:57 22:57 WBC 4.91 (4.0-11.0) K/uL RBC 4.42 (4.30-5.90) M/uL Hgb 11.8 L (12.0-16.0) g/dL Hct 37.6 (36.0-46.0) % MCV 85.1 (80.0-98.0) fL MCH 26.7 L (27.0-32.0) pg MCHC 31.4 (31.0-37.0) g/dL RDW Std Deviation 43.2 (28.0-62.0) fl RDW Coeff of Ashley 14 (11.0-15.0) % Plt Count 168 (150-400) K/uL MPV 10.80 (7.40-12.00) fL Neut % (Auto) 76.2 (48.0-80.0) % Lymph % (Auto) 18.7 (16.0-40.0) % [place] % (Auto) 5.1 (0.0-15.0) % Eos % (Auto) 0.0 (0.0-7.0) % Baso % (Auto) 0.0 (0.0-1.5) % Neut # (Auto) 3.7 (1.4-5.7) K/uL Lymph # (Auto) 0.9 (0.6-2.4) K/uL [place] # (Auto) 0.3 (0.0-0.8) K/uL Eos # (Auto) 0.0 (0.0-0.7) K/uL Baso # (Auto) 0.0 (0.0-0.1) K/uL Nucleated RBC % 0.0 /100WBC Nucleated RBCs # 0 K/uL Lactate 1.0 (0.20-2.00) mmol/L Sodium 133 L (136-145) mmol/L Potassium 3.3 L (3.5-5.1) mmol/L Chloride 97 L (98-107) mmol/L Carbon Dioxide 25.5 (21.0-32.0) mmol/L BUN 8 (7.0-18.0) mg/dL Creatinine 1.0 (0.6-1.0) mg/dL Est Cr Clr Drug Dosing 65.27 mL/min Estimated GFR (MDRD) > 60.0 ml/min Glucose 123 H (74-106) mg/dL Calcium 8.6 (8.5-10.1) mg/dL Total Bilirubin 0.4 (0.2-1.0) mg/dL AST 25 (15-37) IU/L ALT 17 (14-63) IU/L Alkaline Phosphatase 77 (46-116) U/L Troponin I < 0.050 (0.000-0.056) ng/mL Total Protein 8.1 (6.4-8.2) g/dL Albumin 3.5 (3.4-5.0) g/dL Globulin 4.6 H (2.6-4.0) g/dL Albumin/Globulin Ratio 0.8 L (0.9-1.6) Lipase 248 (73-393) U/L Urine Color Urine Appearance Urine pH (5.0-8.0) Ur Specific [place] (1.001-1.035) Urine Protein (NEGATIVE) mg/dL Urine Glucose (UA) (NEGATIVE) mg/dL Urine Ketones (NEGATIVE) mg/dL Urine Occult Blood (NEGATIVE) Urine Nitrite (NEGATIVE) Urine Bilirubin (NEGATIVE) Urine Urobilinogen (<2.0) EU/dL Ur Leukocyte Esterase (NEGATIVE) Urine RBC (0-2/HPF) Urine WBC (0-5/HPF) Ur Epithelial Cells (NONE-FEW) Urine Bacteria (NEGATIVE) 07/08/20 Range/Units 00:34 WBC (4.0-11.0) K/uL RBC (4.30-5.90) M/uL Hgb (12.0-16.0) g/dL Hct (36.0-46.0) % MCV (80.0-98.0) fL MCH (27.0-32.0) pg MCHC (31.0-37.0) g/dL RDW Std Deviation (28.0-62.0) fl RDW Coeff of Ashley (11.0-15.0) % Plt Count (150-400) K/uL MPV (7.40-12.00) fL Neut % (Auto) (48.0-80.0) % Lymph % (Auto) (16.0-40.0) % [place] % (Auto) (0.0-15.0) % Eos % (Auto) (0.0-7.0) % Baso % (Auto) (0.0-1.5) % Neut # (Auto) (1.4-5.7) K/uL Lymph # (Auto) (0.6-2.4) K/uL [place] # (Auto) (0.0-0.8) K/uL Eos # (Auto) (0.0-0.7) K/uL Baso # (Auto) (0.0-0.1) K/uL Nucleated RBC % /100WBC Nucleated RBCs # K/uL Lactate (0.20-2.00) mmol/L Sodium (136-145) mmol/L Potassium (3.5-5.1) mmol/L Chloride (98-107) mmol/L Carbon Dioxide (21.0-32.0) mmol/L BUN (7.0-18.0) mg/dL Creatinine (0.6-1.0) mg/dL Est Cr Clr Drug Dosing mL/min Estimated GFR (MDRD) ml/min Glucose (74-106) mg/dL Calcium (8.5-10.1) mg/dL Total Bilirubin (0.2-1.0) mg/dL AST (15-37) IU/L ALT (14-63) IU/L Alkaline Phosphatase (46-116) U/L Troponin I (0.000-0.056) ng/mL Total Protein (6.4-8.2) g/dL Albumin (3.4-5.0) g/dL Globulin (2.6-4.0) g/dL Albumin/Globulin Ratio (0.9-1.6) Lipase (73-393) U/L Urine Color YELLOW Urine Appearance SLT CLOUDY Urine pH 6.0 (5.0-8.0) Ur Specific [place] 1.020 (1.001-1.035) Urine Protein 30 H (NEGATIVE) mg/dL Urine Glucose (UA) NEGATIVE (NEGATIVE) mg/dL Urine Ketones 15 H (NEGATIVE) mg/dL Urine Occult Blood NEGATIVE (NEGATIVE) Urine Nitrite NEGATIVE (NEGATIVE) Urine Bilirubin NEGATIVE (NEGATIVE) Urine Urobilinogen 0.2 (<2.0) EU/dL Ur Leukocyte Esterase NEGATIVE (NEGATIVE) Urine RBC 0-1 (0-2/HPF) Urine WBC 0-1 (0-5/HPF) Ur Epithelial Cells FEW (NONE-FEW) Urine Bacteria RARE (NEGATIVE) Meds: Medications Generic Name Dose Route Start Last Admin Trade Name Freq PRN Reason Stop Dose Admin Sodium Chloride 1,000 mls @ 999 mls/hr 07/08/20 01:42 07/08/20 02:03 Normal Saline IV 07/08/20 02:42 999 mls/hr .BOLUS ONE Administration Sodium Chloride 10 ml 07/07/20 22:53 Saline Flush FLUSH ASDIRECTED PRN Keep Vein Open Sodium Chloride 2.5 ml 07/07/20 22:53 Saline Flush FLUSH ASDIRECTED PRN Keep Vein Open Discontinued Medications Generic Name Dose Route Start Last Admin Trade Name Freq PRN Reason Stop Dose Admin Hydrocodone Bitart/Acetaminophen 1 tab 07/07/20 23:24 07/07/20 23:35 [place] 325-5 Mg PO 07/07/20 23:25 1 tab ONETIME ONE Administration Sodium Chloride 1,000 mls @ 999 mls/hr 07/07/20 22:55 07/07/20 23:03 Normal Saline IV 07/07/20 23:55 999 mls/hr .BOLUS ONE Administration Ceftriaxone Sodium/Dextrose 2 50 mls @ 100 mls/hr 07/08/20 01:36 07/08/20 01:57 gm/ Premix IV 07/08/20 02:05 100 mls/hr ONETIME ONE Administration Departure - Departure Time of Disposition: 02:18 Disposition: Home, Self-Care 01 Condition: Good Clinical Impression: Pneumonia - Discharge Information Prescriptions: Acetaminophen/HYDROcodone [[place] 325-7.5 MG] 1 - 2 tab PO Q6H PRN #12 tab PRN Reason: Pain Azithromycin [Zithromax] 250 mg PO DAILY #6 tab Instructions: Community-Acquired Pneumonia, Adult Referrals: PCP,None [Primary Care Provider] - Forms: ED Department Discharge Additional Instructions: Reviewed the guidelines for COVID-19 because your test is not back yet [facility] - [facility] [address] [place] [address] [place] [address] The following information is given to patients seen in the emergency department who are being discharged to home. This information is to outline your options for follow-up care. We provide all patients seen in our emergency department with a follow-up referral. The need for follow-up, as well as the timing and circumstances, are variable depending upon the specifics of your emergency department visit. If you don't have a primary care physician on staff, we will provide you with a referral. We always advise you to contact your personal physician following an emergency department visit to inform them of the circumstance of the visit and for follow-up with them and/or the need for any referrals to a consulting specialist. The emergency department will also refer you to a specialist when appropriate. This referral assures that you have the opportunity for follow-up care with a specialist. All of these measure are taken in an effort to provide you with optimal care, which includes your follow-up. Under all circumstances we always encourage you to contact your private physician who remains a resource for coordinating your care. When calling for follow-up care, please make the office aware that this follow-up is from your recent emergency room visit. If for any reason you are refused follow-up, please contact the [facility] Emergency Department at and asked to speak to the emergency department charge nurse. Sepsis Event Note (ED) - Evaluation Sepsis Screening Result: No Definite Risk - Focused Exam Vital Signs: Vital Signs Temp Pulse Resp BP Pulse Ox 07/08/20 02:00 110 H 18 94/51 L 95 07/08/20 00:26 116 H 20 107/56 L 95 07/07/20 23:37 116 H 18 122/77 93 L 07/07/20 22:38 97.8 F 120 H 20 117/77 94 L - My Orders Last 24 Hours: My Active Orders 07/07/20 22:53 EKG Documentation Completion [RC] AM Sodium Chloride 0.9% [Saline Flush] 10 ml FLUSH ASDIRECTED PRN Sodium Chloride 0.9% [Saline Flush] 2.5 ml FLUSH ASDIRECTED PRN Saline Lock Insert [OM.PC] Stat 07/07/20 22:57 Blood Culture x2 Reflex Set [OM.PC] Stat 07/07/20 23:07 CULTURE BLOOD [BC] Stat 07/07/20 23:17 CULTURE BLOOD [BC] Stat 07/07/20 23:46 CORONAVIRUS COVID-19 PCR PHL Stat 07/08/20 01:42 Sodium Chloride 0.9% [Normal Saline] 1,000 ml IV .BOLUS - Assessment/Plan Last 24 Hours: My Active Orders 07/07/20 22:53 EKG Documentation Completion [RC] AM Sodium Chloride 0.9% [Saline Flush] 10 ml FLUSH ASDIRECTED PRN Sodium Chloride 0.9% [Saline Flush] 2.5 ml FLUSH ASDIRECTED PRN Saline Lock Insert [OM.PC] Stat 07/07/20 22:57 Blood Culture x2 Reflex Set [OM.PC] Stat 07/07/20 23:07 CULTURE BLOOD [BC] Stat 07/07/20 23:17 CULTURE BLOOD [BC] Stat 07/07/20 23:46 CORONAVIRUS COVID-19 PCR PHL Stat 07/08/20 01:42 Sodium Chloride 0.9% [Normal Saline] 1,000 ml IV .BOLUS
[2020-07-07 23:26] LABS: BLOOD UREA NITROGEN,BUN 8 mg/dL (7.0-18.0); CARBON DIOXIDE,CO2 25.5 mmol/L (21.0-32.0); CHLORIDE,CL 97 mmol/L (98-107); GLUCOSE RANDOM 123 mg/dL (74-106); LIPASE 248 U/L (73-393); POTASSIUM,K 3.3 mmol/L (3.5-5.1); SODIUM,NA 133 mmol/L (136-145)
--- NOTE | 2020-07-08 00:35 | CR ---
Indication: Cough Technique: Chest 1 view Comparison: 06/17/2018 Findings/Impression: Cardiovascular and mediastinum: Heart size and vasculature are normal in caliber and appearance. Mediastinum is within normal limits. Lungs and pleural space: Subtle interstitial and small faint patchy opacities in the perihilar regions and lower lungs consistent with evolving infiltrates, including viral pneumonia. Correlate clinically and follow-up. No pleural effusions. No pneumothorax seen. Bones and soft tissues: No significant findings. Dictated by Neto Burger MD @ Jul 08 2020 12:31AM Signed by Dr. Neto Burger @ Jul 08 2020 12:33AM
[2020-07-08] MEDS ORDERED: cefTRIAXone 2 GM in Premix Bag 1 BAG IV ONE (01:36)
[2020-07-08] MEDS ORDERED: Sodium Chloride 0.9% 1,000 ML IV ONE (01:42)
[2020-07-08 07:30] VITALS: BP 104/67; PULSE 112
== END 2020-07-08 03:20 | disposition home or self-care (01) ==
LOC: MW.ED 22:29
DX: U07.1 COVID-19 (principal); J12.89 Other viral pneumonia; Z88.8 Allergy status to other drugs, medicaments and biological substances
CPT/HCPCS: 36415; 71045; 80053; 81001; 83605; 83690; 84484; 85025; 87040; 87635; 93005; 96365; 99284; A9270; J0696; J7030; U0002

== ENCOUNTER 2020-07-09 16:57 | Emergency (ER) | payer BC ==
[2020-07-09] MEDS ORDERED: Sodium Chloride 0.9% 2.5 ML Syringe FLUSH PRN (17:44)
[2020-07-09] MEDS ORDERED: Sodium Chloride 0.9% 10 ML Syringe FLUSH PRN (17:44)
[2020-07-09] MEDS ORDERED: Albuterol HFA 18 Gm Inhaler INH ONE (17:46)
[2020-07-09] MEDS ORDERED: Ondansetron 4 MG/2 ML SDV IVPUSH ONE (17:46)
--- NOTE | 2020-07-09 17:53 | EDM.PDOC ---
<SaulKeagan burris - Last Filed: 07/09/20 19:02> ED HPI GENERAL MEDICAL PROBLEM - General Chief Complaint: General Stated Complaint: COVIC 19 POSITIVE Time Seen by Provider: 07/09/20 17:06 - History of Present Illness INITIAL COMMENTS - FREE TEXT/NARRATIVE: 44-year-old female denies past medical history reports 2 weeks of cough malaise myalgias and arthralgias. Patient was seen in this emergency department few days ago chest x-ray was without focal pneumonia labs are relatively unremarkable vital signs did not mandate admission she was felt likely to have a prolonged course of coronavirus. She was sent home with Pigeon and azithromycin. She returns today persistent worsening symptoms most notably nausea dizziness poor p.o. intake and myalgias. No chest pain but positive for shortness of marina th. 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: , Spontaneous Psychiatric History: Reports: Anxiety Endocrine/Metabolic History: Reports: Diabetes, Gestational Hematologic History: Reports: None Oncologic (Cancer) History: Reports: None - Infectious Disease History Infectious Disease History: Reports: None - Past Surgical History Head Surgeries/Procedures: Reports: None Female Surgical History: Reports: Section Social & Family History - Family History Family Medical History: Unobtainable - Tobacco Use Tobacco Use Status *Q: Never Tobacco User - Caffeine Use Caffeine Use: Reports: None - Recreational Drug Use Recreational Drug Use: No ED ROS GENERAL - Review of Systems Review Of Systems: See Below Free Text/Narrative/Comment: General: Per HPI Skin: No rash. Eyes: No vision problems. ENT: No sore throat. Neck: No neck stiffness. Respiratory: Per HPI Cardiac: No chest pain. Gastrointestinal: No nausea, vomiting or abdominal pain. Urinary: No dysuria. Musculoskeletal: Per HPI Neurologic: Per HPI ED EXAM, GENERAL - Physical Exam Exam: See Below Free Text/Narrative:: General Appearance: No acute distress, appears comfortable Skin: No rash HEENT: Normocephalic/atraumatic, sclera anicteric, mucous membranes dry Neck: Normal range of motion Chest and Lungs: Mild tachypnea with respiratory rate in the 20s but otherwise normal work of breathing Cardiovascular: Regular rate and rhythm, no murmur Abdomen: Soft, non-tender Back: Normal Musculoskeletal: No edema or tenderness Neurologic: Awake, alert, no obvious deficits, moving all extremities Psychiatric: Appropriate, cooperative #1 Interpretation EKG Date: 07/09/20 Time: 18:14 EKG Interpretation Comments: Sinus tachycardia rate of 102 normal intervals and axis without acute ischemia QTC good at 432. Departure - Departure Disposition: Home, Self-Care 01 Clinical Impression: Hyponatremia, COVID-19, Dehydration, Hyponatremia - Discharge Information Instructions: Dehydration, Adult, [id number], COVID-19 Frequently Asked Questions, Rehydration, Adult Referrals: PCP,None [Primary Care Provider] - Forms: ED Department Discharge Additional Instructions: [facility] - Primary Care [address] [place] [address] [place] [address] The following information is given to patients seen in the emergency department who are being discharged to home. This information is to outline your options for follow-up care. We provide all patients seen in our emergency department with a follow-up referral. The need for follow-up, as well as the timing and circumstances, are variable depending upon the specifics of your emergency department visit. If you don't have a primary care physician on staff, we will provide you with a referral. We always advise you to contact your personal physician following an emergency department visit to inform them of the circumstance of the visit and for follow-up with them and/or the need for any referrals to a consulting specialist. The emergency department will also refer you to a specialist when appropriate. This referral assures that you have the opportunity for follow-up care with a specialist. All of these measure are taken in an effort to provide you with optimal care, which includes your follow-up. Under all circumstances we always encourage you to contact your private physician who remains a resource for coordinating your care. When calling for follow-up care, please make the office aware that this follow-up is from your recent emergency room visit. If for any reason you are refused follow-up, please contact the [facility] Emergency Department at and asked to speak to the emergency department charge nurse. Sepsis Event Note (ED) - Evaluation Sepsis Screening Result: No Definite Risk - Assessment/Plan Assessment:: 44-year-old female presenting with signs and symptoms consistent with ongoing coronavirus infection. O2 saturation borderline in the low 90s but no need for supplemental oxygen at this time. Patient is dehydrated but I would like to avoid IV fluids if possible given her known Covid status. Will provide Zofran and encourage p.o. intake. Patient has aspirin allergy so must avoid Toradol which I would normally give for myalgias. Chest x-ray to evaluate for worsening disease PE considered but I think it is unlikely given lack of substantial tachycardia or profound hypoxia. Renal dysfunction and electrolyte anomaly considered given clinical dehydration and relevant labs are pending EKG and troponin to assess for any findings of cardiac involvement and myocarditis but no concern for ACS. 1853: Labs with mild hypochloremic hyponatremia consistent with dehydration. Will give 500mls NS and will reassess. Final disposition signed out to Dr. 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 He speaks Serbian and Vietnamese. He understood that the patient is suffering with body aches and shortness of breath. She is not oxygen dependent and therefore not eligible for admission to the Covid unit. She will not have her pro calcitonin level reported tonight so I am going to discharge her and tell her to continue the antibiotics until follow-up. She understood the instructions once translated by her . Last Recorded V/S: Last Vital Signs Temp 96.0 F L 07/09/20 17:09 Pulse 98 07/09/20 19:40 Resp 26 H 07/09/20 17:09 BP 121/78 07/09/20 19:40 Pulse Ox 92 L 07/09/20 19:40 - Orders/Labs/Meds Orders: Active Orders 24 hr Category Date Time Status EKG Documentation Completion [RC] STAT Care 07/09/20 17:45 Active RT Post Treatment Assessment [RC] Click to Edit Care 07/09/20 17:46 Active RT Pre-Treatment Assessment [RC] Click to Edit Care 07/09/20 17:46 Active PROCALCITONIN [REF] Stat Lab 07/09/20 17:18 Received Sodium Chloride 0.9% [Normal Saline] 500 ml Med 07/09/20 19:00 Active IV .BOLUS Sodium Chloride 0.9% [Saline Flush] Med 07/09/20 17:44 Active 10 ml FLUSH ASDIRECTED PRN Sodium Chloride 0.9% [Saline Flush] Med 07/09/20 17:44 Active 2.5 ml FLUSH ASDIRECTED PRN Saline Lock Insert [OM.PC] Stat Oth 07/09/20 17:44 Ordered Medication Orders Sodium Chloride (Normal Saline) 500 mls @ 999 mls/hr IV .BOLUS HOWARD Last Admin: 07/09/20 19:27 Dose: 999 mls/hr Documented by: KADIE Sodium Chloride (Saline Flush) 10 ml FLUSH ASDIRECTED PRN PRN Reason: Keep Vein Open Last Admin: 07/09/20 18:00 Dose: 10 ml Documented by: RADHA Sodium Chloride (Saline Flush) 2.5 ml FLUSH ASDIRECTED PRN PRN Reason: Keep Vein Open Last Admin: 07/09/20 18:00 Dose: 2.5 ml Documented by: RADHA Labs: Laboratory Tests 07/09/20 07/09/20 07/09/20 Range/Units 17:18 17:18 17:18 WBC 6.02 (4.0-11.0) K/uL RBC 4.08 L (4.30-5.90) M/uL Hgb 11.0 L (12.0-16.0) g/dL Hct 34.3 L (36.0-46.0) % MCV 84.1 (80.0-98.0) fL MCH 27.0 (27.0-32.0) pg MCHC 32.1 (31.0-37.0) g/dL RDW Std Deviation 43.1 (28.0-62.0) fl RDW Coeff of Ashley 14 (11.0-15.0) % Plt Count 221 (150-400) K/uL MPV 10.90 (7.40-12.00) fL Neut % (Auto) 81.6 H (48.0-80.0) % Lymph % (Auto) 14.0 L (16.0-40.0) % [place] % (Auto) 4.2 (0.0-15.0) % Eos % (Auto) 0.0 (0.0-7.0) % Baso % (Auto) 0.2 (0.0-1.5) % Neut # (Auto) 4.9 (1.4-5.7) K/uL Lymph # (Auto) 0.8 (0.6-2.4) K/uL [place] # (Auto) 0.3 (0.0-0.8) K/uL Eos # (Auto) 0.0 (0.0-0.7) K/uL Baso # (Auto) 0.0 (0.0-0.1) K/uL Nucleated RBC % 0.0 /100WBC Nucleated RBCs # 0 K/uL VBG pH (7.31-7.41) VBG pCO2 (35-45) mmHG VBG pO2 (30-40) mmHG VBG HCO3 (22-30) mEq/L VBG Total CO2 (41-51) mmol/L VBG Base Excess (-3.0-3.0) Lactate 1.0 (0.20-2.00) mmol/L Sodium 132 L (136-145) mmol/L Potassium 3.3 L (3.5-5.1) mmol/L Chloride 96 L (98-107) mmol/L Carbon Dioxide 27.0 (21.0-32.0) mmol/L BUN 10 (7.0-18.0) mg/dL Creatinine 0.7 (0.6-1.0) mg/dL Est Cr Clr Drug Dosing 100.77 mL/min Estimated GFR (MDRD) > 60.0 ml/min Glucose 127 H (74-106) mg/dL Calcium 8.7 (8.5-10.1) mg/dL Total Bilirubin 0.5 (0.2-1.0) mg/dL AST 26 (15-37) IU/L ALT 20 (14-63) IU/L Alkaline Phosphatase 65 (46-116) U/L Troponin I < 0.050 (0.000-0.056) ng/mL Total Protein 7.8 (6.4-8.2) g/dL Albumin 3.1 L (3.4-5.0) g/dL Globulin 4.7 H (2.6-4.0) g/dL Albumin/Globulin Ratio 0.7 L (0.9-1.6) 07/09/20 Range/Units 17:18 WBC (4.0-11.0) K/uL RBC (4.30-5.90) M/uL Hgb (12.0-16.0) g/dL Hct (36.0-46.0) % MCV (80.0-98.0) fL MCH (27.0-32.0) pg MCHC (31.0-37.0) g/dL RDW Std Deviation (28.0-62.0) fl RDW Coeff of Ashley (11.0-15.0) % Plt Count (150-400) K/uL MPV (7.40-12.00) fL Neut % (Auto) (48.0-80.0) % Lymph % (Auto) (16.0-40.0) % [place] % (Auto) (0.0-15.0) % Eos % (Auto) (0.0-7.0) % Baso % (Auto) (0.0-1.5) % Neut # (Auto) (1.4-5.7) K/uL Lymph # (Auto) (0.6-2.4) K/uL [place] # (Auto) (0.0-0.8) K/uL Eos # (Auto) (0.0-0.7) K/uL Baso # (Auto) (0.0-0.1) K/uL Nucleated RBC % /100WBC Nucleated RBCs # K/uL VBG pH 7.47 H (7.31-7.41) VBG pCO2 39 (35-45) mmHG VBG pO2 45 H (30-40) mmHG VBG HCO3 28 (22-30) mEq/L VBG Total CO2 26 L (41-51) mmol/L VBG Base Excess 3.9 H (-3.0-3.0) Lactate (0.20-2.00) mmol/L Sodium (136-145) mmol/L Potassium (3.5-5.1) mmol/L Chloride (98-107) mmol/L Carbon Dioxide (21.0-32.0) mmol/L BUN (7.0-18.0) mg/dL Creatinine (0.6-1.0) mg/dL Est Cr Clr Drug Dosing mL/min Estimated GFR (MDRD) ml/min Glucose (74-106) mg/dL Calcium (8.5-10.1) mg/dL Total Bilirubin (0.2-1.0) mg/dL AST (15-37) IU/L ALT (14-63) IU/L Alkaline Phosphatase (46-116) U/L Troponin I (0.000-0.056) ng/mL Total Protein (6.4-8.2) g/dL Albumin (3.4-5.0) g/dL Globulin (2.6-4.0) g/dL Albumin/Globulin Ratio (0.9-1.6) Meds: Medications Generic Name Dose Route Start Last Admin Trade Name Freq PRN Reason Stop Dose Admin Sodium Chloride 500 mls @ 999 mls/hr 07/09/20 19:00 07/09/20 19:27 Normal Saline IV 999 mls/hr .BOLUS HOWARD Administration Sodium Chloride 10 ml 07/09/20 17:44 07/09/20 18:00 Saline Flush FLUSH 10 ml ASDIRECTED PRN Administration Keep Vein Open Sodium Chloride 2.5 ml 07/09/20 17:44 07/09/20 18:00 Saline Flush FLUSH 2.5 ml ASDIRECTED PRN Administration Keep Vein Open Discontinued Medications Generic Name Dose Route Start Last Admin Trade Name Freq PRN Reason Stop Dose Admin Albuterol 2 gm 07/09/20 17:46 07/09/20 18:00 Ventolin Hfa INH 07/09/20 17:47 2 puff ONETIME ONE Administration Ondansetron HCl 4 mg 07/09/20 17:46 07/09/20 18:00 Zofran IVPUSH 07/09/20 17:47 4 mg ONETIME ONE Administration Departure - Departure Time of Disposition: 20:54 Condition: Good Sepsis Event Note (ED) - Focused Exam Vital Signs: Vital Signs Temp Pulse Resp BP Pulse Ox 07/09/20 19:40 98 121/78 92 L 07/09/20 19:10 101 H 102/68 92 L 07/09/20 18:40 94 117/69 90 L 07/09/20 18:23 100 109/69 90 L 07/09/20 17:40 104 H 123/70 93 L 07/09/20 17:09 96.0 F L 110 H 26 H 122/67 91 L
[2020-07-09 18:25] LABS: BLOOD UREA NITROGEN,BUN 10 mg/dL (7.0-18.0); CHLORIDE,CL 96 mmol/L (98-107); GLUCOSE RANDOM 127 mg/dL (74-106); POTASSIUM,K 3.3 mmol/L (3.5-5.1); SODIUM,NA 132 mmol/L (136-145)
--- NOTE | 2020-07-09 18:29 | CR ---
INDICATION: Worsening shortness of breath known guzmán virus 19. TECHNIQUE: Chest 1 view COMPARISON: Single view chest July 07, 2020 FINDINGS: There is persistent airspace opacity within the peripheral left lung base somewhat increased from comparison. There is no pneumothorax or pleural effusion. The cardiac silhouette is stable. The bony thorax is grossly intact. IMPRESSION: Slightly increased airspace opacification of the peripheral left lung base likely representing developing infiltrate. Dictated by Omar Smith MD @ Jul 09 2020 6:21PM Signed by Dr. Omar Smith @ Jul 09 2020 6:28PM
[2020-07-09] MEDS ORDERED: Sodium Chloride 0.9% 500 ML IV SCH (19:00)
[2020-07-09 20:54] VITALS: BP 133/66; PULSE 97
== END 2020-07-09 21:13 | disposition home or self-care (01) ==
LOC: MW.ED 16:57
DX: U07.1 COVID-19 (principal); E87.1 Hypo-osmolality and hyponatremia; E86.0 Dehydration; Z88.8 Allergy status to other drugs, medicaments and biological substances
CPT/HCPCS: 36415; 71045; 80053; 82803; 83605; 84145; 84484; 85025; 93005; 96374; 99285; J2405; J7040; J3535-GY

== ENCOUNTER 2020-07-14 13:14 | Emergency (ER) | payer BC ==
[2020-07-14] MEDS ORDERED: Sodium Chloride 0.9% 10 ML Syringe FLUSH PRN (13:37)
[2020-07-14] MEDS ORDERED: Sodium Chloride 0.9% 1,000 ML IV ONE (13:37)
[2020-07-14] MEDS ORDERED: Acetaminophen 500 MG Tab PO ONE (13:37)
[2020-07-14] MEDS ORDERED: Sodium Chloride 0.9% 2.5 ML Syringe FLUSH PRN (13:37)
[2020-07-14] MEDS ORDERED: Ondansetron 4 MG/2 ML SDV IVPUSH ONE (13:37)
[2020-07-14] MEDS ORDERED: Ketorolac 15 MG/ML SDV IVPUSH ONE (13:38)
--- NOTE | 2020-07-14 13:41 | EDM.PDOC ---
ED HPI GENERAL MEDICAL PROBLEM - General Chief Complaint: Respiratory Problem Stated Complaint: SPOKE TO NURSE Time Seen by Provider: 07/14/20 13:19 Source of Information: Reports: Patient History Limitations: Reports: No Limitations - History of Present Illness INITIAL COMMENTS - FREE TEXT/NARRATIVE: 44-year-old female presents for multiple complaints. Patient was recently di agnosed with COVID-19 on 07/07. She notes that since going home she has experienced continued and worsening shortness of breath, chest tightness, body aches in her head and back, fevers, nausea, vomiting, abdominal pain. She did finish her course of azithromycin as she had infiltrates on her x-ray in the emergency department. chest, back, right leg, Pain Score (Numeric/FACES): 10 - Related Data Allergies Allergy/AdvReac Type Severity Reaction Status Date / Time aspirin Allergy Itching Verified 07/14/20 13:26 Home Meds: Home Meds Hydrocodone/Acetaminophen [Shickley 10-325 Tablet] 1 each PO Q4H PRN #24 tablet 07/14/20 [Rx] Past Medical History - Past Health History Medical/Surgical History: Denies Medical/Surgical History Gastrointestinal History: Reports: Other (See Below) Other Gastrointestinal History: occasional heartburn with Genitourinary History: Reports: None BEEF TRIMMER History: Reports: , Spontaneous Psychiatric History: Reports: Anxiety Endocrine/Metabolic History: Reports: Diabetes, Gestational Hematologic History: Reports: None Oncologic (Cancer) History: Reports: None - Infectious Disease History Infectious Disease History: Reports: Novel Coronavirus - Past Surgical History Head Surgeries/Procedures: Reports: None Female Surgical History: Reports: Section Social & Family History - Family History Family Medical History: Unobtainable - Tobacco Use Tobacco Use Status *Q: Never Tobacco User - Caffeine Use Caffeine Use: Reports: None - Recreational Drug Use Recreational Drug Use: No ED ROS GENERAL - Review of Systems Review Of Systems: Comprehensive ROS is negative, except as noted in HPI. ED EXAM, GENERAL - Physical Exam Exam: See Below Exam Limited By: No Limitations General Appearance: Alert, WD/WN, No Apparent Distress, Other (Uncomfortable appearing) Throat/Mouth: Normal Voice, No Airway Compromise Head: Atraumatic, Normocephalic Neck: Normal Inspection Respiratory/Chest: No Respiratory Distress, Lungs Clear, Normal Breath Sounds, No Accessory Muscle Use, Other (Coughing throughout exam) Cardiovascular: Normal Peripheral Pulses, Tachycardia Extremities: Normal Inspection Neurological: Alert Psychiatric: Normal Affect, Normal Mood Skin Exam: Warm, Dry, Intact Course - Vital Signs Last Recorded V/S: Last Vital Signs Temp 97.1 F 07/14/20 13:21 Pulse 85 07/14/20 16:34 Resp 18 07/14/20 13:21 BP 115/76 07/14/20 16:34 Pulse Ox 92 L 07/14/20 16:34 - Orders/Labs/Meds Orders: Active Orders 24 hr Category Date Time Status Pulse Oximetry [RC] ASDIRECTED Care 07/14/20 13:37 Active Sodium Chloride 0.9% [Saline Flush] Med 07/14/20 13:37 Active 10 ml FLUSH ASDIRECTED PRN Sodium Chloride 0.9% [Saline Flush] Med 07/14/20 13:37 Active 2.5 ml FLUSH ASDIRECTED PRN Saline Lock Insert [OM.PC] Stat Oth 07/14/20 13:37 Ordered Medication Orders Sodium Chloride (Saline Flush) 10 ml FLUSH ASDIRECTED PRN PRN Reason: Keep Vein Open Last Admin: 07/14/20 14:17 Dose: 10 ml Documented by: [email or web address] Sodium Chloride (Saline Flush) 2.5 ml FLUSH ASDIRECTED PRN PRN Reason: Keep Vein Open Labs: Laboratory Tests 07/14/20 07/14/20 07/14/20 Range/Units 14:10 14:10 14:10 WBC 4.96 (4.0-11.0) K/uL RBC 4.38 (4.30-5.90) M/uL Hgb 11.7 L (12.0-16.0) g/dL Hct 37.5 (36.0-46.0) % MCV 85.6 (80.0-98.0) fL MCH 26.7 L (27.0-32.0) pg MCHC 31.2 (31.0-37.0) g/dL RDW Std Deviation 43.2 (28.0-62.0) fl RDW Coeff of Ashley 14 (11.0-15.0) % Plt Count 531 H (150-400) K/uL MPV 10.40 (7.40-12.00) fL Neut % (Auto) 58.5 (48.0-80.0) % Lymph % (Auto) 29.0 (16.0-40.0) % Bullock % (Auto) 10.3 (0.0-15.0) % Eos % (Auto) 2.0 (0.0-7.0) % Baso % (Auto) 0.2 (0.0-1.5) % Neut # (Auto) 2.9 (1.4-5.7) K/uL Lymph # (Auto) 1.4 (0.6-2.4) K/uL Bullock # (Auto) 0.5 (0.0-0.8) K/uL Eos # (Auto) 0.1 (0.0-0.7) K/uL Baso # (Auto) 0.0 (0.0-0.1) K/uL Nucleated RBC % 0.0 /100WBC Nucleated RBCs # 0 K/uL INR 1.04 APTT 24.1 (18.6-31.3) SEC D-Dimer, Quantitative 2.90 H (0.0-0.50) mg/L FEU Lactate 1.6 (0.20-2.00) mmol/L Sodium (136-145) mmol/L Potassium (3.5-5.1) mmol/L Chloride (98-107) mmol/L Carbon Dioxide (21.0-32.0) mmol/L BUN (7.0-18.0) mg/dL Creatinine (0.6-1.0) mg/dL Est Cr Clr Drug Dosing mL/min Estimated GFR (MDRD) ml/min Glucose (74-106) mg/dL Calcium (8.5-10.1) mg/dL Magnesium (1.8-2.4) mg/dL Total Bilirubin (0.2-1.0) mg/dL AST (15-37) IU/L ALT (14-63) IU/L Alkaline Phosphatase (46-116) U/L C-Reactive Protein (0.00-0.90) mg/dL Total Protein (6.4-8.2) g/dL Albumin (3.4-5.0) g/dL Globulin (2.6-4.0) g/dL Albumin/Globulin Ratio (0.9-1.6) 07/14/20 Range/Units 14:10 WBC (4.0-11.0) K/uL RBC (4.30-5.90) M/uL Hgb (12.0-16.0) g/dL Hct (36.0-46.0) % MCV (80.0-98.0) fL MCH (27.0-32.0) pg MCHC (31.0-37.0) g/dL RDW Std Deviation (28.0-62.0) fl RDW Coeff of Ashley (11.0-15.0) % Plt Count (150-400) K/uL MPV (7.40-12.00) fL Neut % (Auto) (48.0-80.0) % Lymph % (Auto) (16.0-40.0) % Bullock % (Auto) (0.0-15.0) % Eos % (Auto) (0.0-7.0) % Baso % (Auto) (0.0-1.5) % Neut # (Auto) (1.4-5.7) K/uL Lymph # (Auto) (0.6-2.4) K/uL Bullock # (Auto) (0.0-0.8) K/uL Eos # (Auto) (0.0-0.7) K/uL Baso # (Auto) (0.0-0.1) K/uL Nucleated RBC % /100WBC Nucleated RBCs # K/uL INR APTT (18.6-31.3) SEC D-Dimer, Quantitative (0.0-0.50) mg/L FEU Lactate (0.20-2.00) mmol/L Sodium 138 (136-145) mmol/L Potassium 3.4 L (3.5-5.1) mmol/L Chloride 101 (98-107) mmol/L Carbon Dioxide 27.1 (21.0-32.0) mmol/L BUN 8 (7.0-18.0) mg/dL Creatinine 0.7 (0.6-1.0) mg/dL Est Cr Clr Drug Dosing 93.25 mL/min Estimated GFR (MDRD) > 60.0 ml/min Glucose 121 H (74-106) mg/dL Calcium 9.6 (8.5-10.1) mg/dL Magnesium 2.3 (1.8-2.4) mg/dL Total Bilirubin 0.4 (0.2-1.0) mg/dL AST 21 (15-37) IU/L ALT 28 (14-63) IU/L Alkaline Phosphatase 99 (46-116) U/L C-Reactive Protein 9.50 H (0.00-0.90) mg/dL Total Protein 8.2 (6.4-8.2) g/dL Albumin 2.9 L (3.4-5.0) g/dL Globulin 5.3 H (2.6-4.0) g/dL Albumin/Globulin Ratio 0.6 L (0.9-1.6) Meds: Medications Generic Name Dose Route Start Last Admin Trade Name Freq PRN Reason Stop Dose Admin Sodium Chloride 10 ml 07/14/20 13:37 07/14/20 14:17 Saline Flush FLUSH 10 ml ASDIRECTED PRN Administration Keep Vein Open Sodium Chloride 2.5 ml 07/14/20 13:37 Saline Flush FLUSH ASDIRECTED PRN Keep Vein Open Discontinued Medications Generic Name Dose Route Start Last Admin Trade Name Freq PRN Reason Stop Dose Admin Acetaminophen 1,000 mg 07/14/20 13:37 07/14/20 14:28 Tylenol Extra Strength PO 07/14/20 13:38 1,000 mg ONETIME ONE Administration Sodium Chloride 1,000 mls @ 999 mls/hr 07/14/20 13:37 07/14/20 14:16 Normal Saline IV 07/14/20 14:37 999 mls/hr .Bolus ONE Administration Iopamidol 60 ml 07/14/20 17:16 07/14/20 17:16 Isovue Multipack-370 (76%) IVPUSH 07/14/20 17:17 60 ml ONETIME ONE Administration Ketorolac Tromethamine 15 mg 07/14/20 13:38 07/14/20 14:23 Toradol IVPUSH 07/14/20 13:39 15 mg ONETIME ONE Administration Ondansetron HCl 4 mg 07/14/20 13:37 07/14/20 14:19 Zofran IVPUSH 07/14/20 13:38 4 mg ONETIME ONE Administration - Re-Assessments/Exams Free Text/Narrative Re-Assessment/Exam: 07/14/20 13:40 Patient presents with worsening symptoms and known diagnosis of COVID-19. Will get basic labs including D-dimer, chest x-ray. Will treat with IV fluid bolus, Tylenol, Toradol, Zofran. We will follow up results and disposition accordingly. 07/14/20 14:12 Chest x-ray reveals worsening bilateral infiltrates compared to last x-ray last week 07/14/20 15:49 D-dimer markedly elevated, will get CTA to rule out pulmonary embolism. 07/14/20 17:40 CT imaging results pending, patient's tachycardia has resolved. O2 saturation remains 92% on room air. 07/14/20 17:56 CT imaging is remarkable for signs of Covid pneumonia, but no evidence of pulmonary embolism. Patient's oxygen saturations remain okay on room air. Will send home with cough suppressant/analgesia. Return precautions were discussed at length and stressed to patient. If she develops worsening shortness of breath or chest pain she is to return to the emergency department immediately. Departure - Departure Time of Disposition: 17:57 Disposition: Home, Self-Care 01 Condition: Good Clinical Impression: COVID-19 - Discharge Information Prescriptions: Hydrocodone/Acetaminophen [Shickley 10-325 Tablet] 1 each PO Q4H PRN #24 tablet PRN Reason: Pain Referrals: PCP,Unknown [Primary Care Provider] - Forms: ED Department Discharge Additional Instructions: Your labs were remarkable for evidence of Covid. Your chest CT showed evidence of Covid pneumonia, but no evidence of a blood clot in the lungs. Your oxygen saturation has remained okay during your time in the ER. I have sent you on medication called Shickley which is a pain medicine that is also used as a cough suppressant. You are encouraged to return to the emergency department if you develop worsening shortness of breath, chest pain or any symptoms that are concerning to you. The following information is given to patients seen in the emergency department who are being discharged to home. This information is to outline your options for follow-up care. We provide all patients seen in our emergency department with a follow-up referral. The need for follow-up, as well as the timing and circumstances, are variable depending upon the specifics of your emergency department visit. If you don't have a primary care physician on staff, we will provide you with a referral. We always advise you to contact your personal physician following an emergency department visit to inform them of the circumstance of the visit and for follow-up with them and/or the need for any referrals to a consulting specialist. The emergency department will also refer you to a specialist when appropriate. This referral assures that you have the opportunity for follow-up care with a specialist. All of these measure are taken in an effort to provide you with optimal care, which includes your follow-up. Under all circumstances we always encourage you to contact your private physician who remains a resource for coordinating your care. When calling for follow-up care, please make the office aware that this follow-up is from your recent emergency room visit. If for any reason you are refused follow-up, please contact the [facility] Emergency Department at and asked to speak to the emergency department charge nurse. Please follow up with your primary care physician. If you do not have a primary care physician, see below: [facility] [address] [place] [id number] [facility] [address] [place] [address] Sepsis Event Note (ED) - Evaluation Sepsis Screening Result: No Definite Risk - Focused Exam Vital Signs: Vital Signs Temp Pulse Resp BP Pulse Ox 07/14/20 16:34 85 115/76 92 L 07/14/20 13:21 97.1 F 119 H 18 92 L - My Orders Last 24 Hours: My Active Orders 07/14/20 13:37 Pulse Oximetry [RC] ASDIRECTED Sodium Chloride 0.9% [Saline Flush] 10 ml FLUSH ASDIRECTED PRN Sodium Chloride 0.9% [Saline Flush] 2.5 ml FLUSH ASDIRECTED PRN Saline Lock Insert [OM.PC] Stat - Assessment/Plan Last 24 Hours: My Active Orders 07/14/20 13:37 Pulse Oximetry [RC] ASDIRECTED Sodium Chloride 0.9% [Saline Flush] 10 ml FLUSH ASDIRECTED PRN Sodium Chloride 0.9% [Saline Flush] 2.5 ml FLUSH ASDIRECTED PRN Saline Lock Insert [OM.PC] Stat
--- NOTE | 2020-07-14 14:11 | CR ---
Indication: Worsening cough in pelvic symptoms. Technique: AP portable view of the chest. Comparison: July 09, 2020. Findings: Increasing bilateral peripheral opacities are identified, particularly on the left. No pneumothorax is identified. No pleural effusion is identified. The heart is normal in size. Impression: Increasing peripheral opacities. Dictated by Gissell Montague MD @ Jul 14 2020 2:07PM Signed by Dr. Gissell Montague @ Jul 14 2020 2:09PM
[2020-07-14 14:57] LABS: BLOOD UREA NITROGEN,BUN 8 mg/dL (7.0-18.0); CARBON DIOXIDE,CO2 27.1 mmol/L (21.0-32.0); CHLORIDE,CL 101 mmol/L (98-107); GLUCOSE RANDOM 121 mg/dL (74-106); POTASSIUM,K 3.4 mmol/L (3.5-5.1); SODIUM,NA 138 mmol/L (136-145)
[2020-07-14] MEDS ORDERED: Iopamidol 755 MG/ML 500 ML Multipack Bottle IVPUSH ONE (17:16)
[2020-07-14 17:39] VITALS: BP 115/76; PULSE 85
--- NOTE | 2020-07-14 17:50 | CT ---
INDICATION: COVID pneumonia. Elevated D-dimer. TECHNIQUE : CT scan of the chest. CTA PE protocol. IV contrast. 60 cc of Isovue administered intravenous. FINDINGS: Pulmonary arteries:No pulmonary artery filling defects. Heart/mediastinum:Normal heart size with no pericardial effusion or adenopathy. Lungs and pleura:Bilateral ground-glass peripheral pulmonary opacities with slightly more basilar predominant distribution. No pleural effusions or pneumothorax. Abdomen/skeletal:Unremarkable. IMPRESSION: 1. No signs for acute pulmonary embolus. 2. Bilateral alveolar ground-glass opacities with a pattern characteristic or suggestive of COVID-19 pneumonia. Please note that all CT scans at this facility use dose modulation, iterative reconstruction, and/or weight-based dosing when appropriate to reduce radiation dose to as low as reasonably achievable. Dictated by Tristian Gonzalez MD @ Jul 14 2020 5:42PM Signed by Dr. Tristian Gonzalez @ Jul 14 2020 5:49PM
== END 2020-07-14 16:30 | disposition home or self-care (01) ==
LOC: MW.ED 13:14
DX: U07.1 COVID-19 (principal); Z88.8 Allergy status to other drugs, medicaments and biological substances
CPT/HCPCS: 36415; 71045; 71275; 80053; 83605; 83735; 85025; 85379; 85610; 85730; 86140; 96374; 99285; A9270; J1885; J2405; J7030; Q9967; 99283

== ENCOUNTER 2020-07-22 11:44 | Emergency (ER) | payer BC ==
[2020-07-22 12:53] VITALS: BP 113/71
[2020-07-22] MEDS ORDERED: Sodium Chloride 0.9% 1,000 ML IV ONE (12:58)
[2020-07-22] MEDS ORDERED: Sodium Chloride 0.9% 10 ML Syringe FLUSH PRN (12:58)
[2020-07-22] MEDS ORDERED: Sodium Chloride 0.9% 2.5 ML Syringe FLUSH PRN (12:58)
[2020-07-22] MEDS ORDERED: Acetaminophen 500 MG Tab PO ONE (12:58)
--- NOTE | 2020-07-22 13:02 | EDM.PDOC ---
ED HPI GENERAL MEDICAL PROBLEM - General Chief Complaint: General Stated Complaint: NOT FEELING WELL Time Seen by Provider: 07/22/20 12:10 Source of Information: Reports: Patient History Limitations: Reports: No Limitations - History of Present Illness INITIAL COMMENTS - FREE TEXT/NARRATIVE: 44-year-old female presents with shortness of breath and chest tightness in setting of known COVID-19 infection. Patient was diagnosed on 1025 with COVID- 19. She notes persistent shortness of breath and chest tightness. No fevers. Positive cough. States that she gets short of breath with short walking around her house. Has been taking Percocet for pain. 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: , Spontaneous Psychiatric History: Reports: Anxiety Endocrine/Metabolic History: Reports: Diabetes, Gestational Hematologic History: Reports: None Oncologic (Cancer) History: Reports: None - Infectious Disease History Infectious Disease History: Reports: Novel Coronavirus - Past Surgical History Head Surgeries/Procedures: Reports: None Female Surgical History: Reports: Section Social & Family History - Family History Family Medical History: Unobtainable - Caffeine Use Caffeine Use: Reports: None ED ROS GENERAL - Review of Systems Review Of Systems: Comprehensive ROS is negative, except as noted in HPI. ED EXAM, GENERAL - Physical Exam Exam: See Below Exam Limited By: No Limitations General Appearance: Alert, WD/WN, No Apparent Distress Nose: Normal Inspection Throat/Mouth: Normal Voice, No Airway Compromise Head: Atraumatic, Normocephalic Neck: Normal Inspection Respiratory/Chest: No Respiratory Distress, Lungs Clear, Normal Breath Sounds, No Accessory Muscle Use Cardiovascular: Normal Peripheral Pulses, Regular Rate, Rhythm Extremities: Normal Inspection Neurological: Alert Psychiatric: Normal Affect, Normal Mood Skin Exam: Warm, Dry, Intact, Normal Color #1 Interpretation EKG Date: 07/22/20 Time: 13:30 Rhythm: NSR Rate (Beats/Min): 87 [place]: Normal P-Wave: Present QRS: Normal ST-T: Normal QT: Normal MA/PQ Interval: 129 Comparison: NA - No Prior EKG Course - Vital Signs Last Recorded V/S: Last Vital Signs Temp 96.5 F L 07/22/20 12:30 Pulse 94 07/22/20 12:30 Resp 18 07/22/20 12:30 BP 113/71 07/22/20 12:30 Pulse Ox 96 07/22/20 12:30 - Orders/Labs/Meds Orders: Active Orders 24 hr Category Date Time Status EKG Documentation Completion [RC] STAT Care 07/22/20 12:58 Active Pulse Oximetry [RC] ASDIRECTED Care 07/22/20 12:58 Active CTA Chest W WO Contrast [Ang Chest] [CT] Stat Exams 07/22/20 15:15 Taken Sodium Chloride 0.9% [Saline Flush] Med 07/22/20 12:58 Active 10 ml FLUSH ASDIRECTED PRN Sodium Chloride 0.9% [Saline Flush] Med 07/22/20 12:58 Active 2.5 ml FLUSH ASDIRECTED PRN Saline Lock Insert [OM.PC] Stat Oth 07/22/20 12:58 Ordered Medication Orders Sodium Chloride (Saline Flush) 10 ml FLUSH ASDIRECTED PRN PRN Reason: Keep Vein Open Last Admin: 07/22/20 13:52 Dose: 10 ml Documented by: BRIGETTE Sodium Chloride (Saline Flush) 2.5 ml FLUSH ASDIRECTED PRN PRN Reason: Keep Vein Open Last Admin: 07/22/20 13:52 Dose: 2.5 ml Documented by: BRIGETTE Labs: Laboratory Tests 07/22/20 07/22/20 07/22/20 Range/Units 13:47 13:47 13:47 WBC 6.94 (4.0-11.0) K/uL RBC 4.20 L (4.30-5.90) M/uL Hgb 11.4 L (12.0-16.0) g/dL Hct 36.7 (36.0-46.0) % MCV 87.4 (80.0-98.0) fL MCH 27.1 (27.0-32.0) pg MCHC 31.1 (31.0-37.0) g/dL RDW Std Deviation 46.4 (28.0-62.0) fl RDW Coeff of Ashley 15 (11.0-15.0) % Plt Count 440 H (150-400) K/uL MPV 9.80 (7.40-12.00) fL Neut % (Auto) 61.8 (48.0-80.0) % Lymph % (Auto) 31.7 (16.0-40.0) % Kendall % (Auto) 5.6 (0.0-15.0) % Eos % (Auto) 0.6 (0.0-7.0) % Baso % (Auto) 0.3 (0.0-1.5) % Neut # (Auto) 4.3 (1.4-5.7) K/uL Lymph # (Auto) 2.2 (0.6-2.4) K/uL Kendall # (Auto) 0.4 (0.0-0.8) K/uL Eos # (Auto) 0.0 (0.0-0.7) K/uL Baso # (Auto) 0.0 (0.0-0.1) K/uL Nucleated RBC % 0.0 /100WBC Nucleated RBCs # 0 K/uL INR 1.05 APTT 25.8 (18.6-31.3) SEC D-Dimer, Quantitative 1.43 H (0.0-0.50) mg/L FEU Lactate 1.7 (0.20-2.00) mmol/L Sodium (136-145) mmol/L Potassium (3.5-5.1) mmol/L Chloride (98-107) mmol/L Carbon Dioxide (21.0-32.0) mmol/L BUN (7.0-18.0) mg/dL Creatinine (0.6-1.0) mg/dL Est Cr Clr Drug Dosing mL/min Estimated GFR (MDRD) ml/min Glucose (74-106) mg/dL Calcium (8.5-10.1) mg/dL Magnesium (1.8-2.4) mg/dL Total Bilirubin (0.2-1.0) mg/dL AST (15-37) IU/L ALT (14-63) IU/L Alkaline Phosphatase (46-116) U/L Troponin I (0.000-0.056) ng/mL C-Reactive Protein (0.00-0.90) mg/dL B-Natriuretic Peptide (<100) PG/ML Total Protein (6.4-8.2) g/dL Albumin (3.4-5.0) g/dL Globulin (2.6-4.0) g/dL Albumin/Globulin Ratio (0.9-1.6) 07/22/20 07/22/20 Range/Units 13:47 13:47 WBC (4.0-11.0) K/uL RBC (4.30-5.90) M/uL Hgb (12.0-16.0) g/dL Hct (36.0-46.0) % MCV (80.0-98.0) fL MCH (27.0-32.0) pg MCHC (31.0-37.0) g/dL RDW Std Deviation (28.0-62.0) fl RDW Coeff of Ashley (11.0-15.0) % Plt Count (150-400) K/uL MPV (7.40-12.00) fL Neut % (Auto) (48.0-80.0) % Lymph % (Auto) (16.0-40.0) % Kendall % (Auto) (0.0-15.0) % Eos % (Auto) (0.0-7.0) % Baso % (Auto) (0.0-1.5) % Neut # (Auto) (1.4-5.7) K/uL Lymph # (Auto) (0.6-2.4) K/uL Kendall # (Auto) (0.0-0.8) K/uL Eos # (Auto) (0.0-0.7) K/uL Baso # (Auto) (0.0-0.1) K/uL Nucleated RBC % /100WBC Nucleated RBCs # K/uL INR APTT (18.6-31.3) SEC D-Dimer, Quantitative (0.0-0.50) mg/L FEU Lactate (0.20-2.00) mmol/L Sodium 135 L (136-145) mmol/L Potassium 4.1 (3.5-5.1) mmol/L Chloride 102 (98-107) mmol/L Carbon Dioxide 27.0 (21.0-32.0) mmol/L BUN 13 (7.0-18.0) mg/dL Creatinine 0.7 (0.6-1.0) mg/dL Est Cr Clr Drug Dosing 93.25 mL/min Estimated GFR (MDRD) > 60.0 ml/min Glucose 113 H (74-106) mg/dL Calcium 9.2 (8.5-10.1) mg/dL Magnesium 1.9 (1.8-2.4) mg/dL Total Bilirubin 0.2 (0.2-1.0) mg/dL AST 22 (15-37) IU/L ALT 38 (14-63) IU/L Alkaline Phosphatase 76 (46-116) U/L Troponin I < 0.050 (0.000-0.056) ng/mL C-Reactive Protein 0.40 (0.00-0.90) mg/dL B-Natriuretic Peptide < 2 (<100) PG/ML Total Protein 7.8 (6.4-8.2) g/dL Albumin 3.3 L (3.4-5.0) g/dL Globulin 4.5 H (2.6-4.0) g/dL Albumin/Globulin Ratio 0.7 L (0.9-1.6) Meds: Medications Generic Name Dose Route Start Last Admin Trade Name Freq PRN Reason Stop Dose Admin Sodium Chloride 10 ml 07/22/20 12:58 07/22/20 13:52 Saline Flush FLUSH 10 ml ASDIRECTED PRN Administration Keep Vein Open Sodium Chloride 2.5 ml 07/22/20 12:58 07/22/20 13:52 Saline Flush FLUSH 2.5 ml ASDIRECTED PRN Administration Keep Vein Open Discontinued Medications Generic Name Dose Route Start Last Admin Trade Name Freq PRN Reason Stop Dose Admin Acetaminophen 1,000 mg 07/22/20 12:58 07/22/20 13:49 Tylenol Extra Strength PO 07/22/20 12:59 1,000 mg ONETIME ONE Administration Sodium Chloride 1,000 mls @ 999 mls/hr 07/22/20 12:58 07/22/20 13:49 Normal Saline IV 07/22/20 13:58 999 mls/hr .Bolus ONE Administration Iopamidol 75 ml 07/22/20 16:20 07/22/20 16:21 Isovue Multipack-370 (76%) IVPUSH 07/22/20 16:21 75 ml ONETIME STA Administration - Re-Assessments/Exams Free Text/Narrative Re-Assessment/Exam: 07/22/20 13:01 Considering patient's persistent symptoms, will get basic labs, chest x-ray, EKG to rule out more serious pathology. Will get D-dimer testing to rule out pulmonary embolism although less likely with no hypoxia and with no tachycardia. Will repeat chest x-ray. Will give patient IV fluid bolus and treat pain with Tylenol. We will follow up results and disposition accordingly. 07/22/20 14:32 Patient's D-dimer is elevated, will get CTA to rule out pulmonary embolism. 07/22/20 16:48 CTA does not show evidence of pulmonary embolism. There are groundglass opacities and consolidative airspace opacities consistent with history of viral Covid. Will d/c with return precautions. Departure - Departure Time of Disposition: 16:48 Disposition: Home, Self-Care 01 Condition: Good Clinical Impression: COVID-19 - Discharge Information Instructions: COVID-19 Frequently Asked Questions, COVID-19: How to Protect Yourself and Others - CDC, COVID-19 Referrals: PCP,None [Primary Care Provider] - Forms: ED Department Discharge Additional Instructions: Your labs are unremarkable. Your CT scan does not show evidence of a blood clot in your lungs which is a concerning complication of Covid. Fortunately your CT scan does not show this! Your CT scan does show some evidence of Covid pneumonia. This is likely why you have shortness of breath and or feeling unwell. The symptoms can last upwards of 8 weeks. Take Tylenol and Motrin for control of your fever and pain. Drink plenty of fluids to stay hydrated. If your shortness of breath gets worse, come back to the emergency department for reassessment. The following information is given to patients seen in the emergency department who are being discharged to home. This information is to outline your options for follow-up care. We provide all patients seen in our emergency department with a follow-up referral. The need for follow-up, as well as the timing and circumstances, are variable depending upon the specifics of your emergency department visit. If you don't have a primary care physician on staff, we will provide you with a referral. We always advise you to contact your personal physician following an emergency department visit to inform them of the circumstance of the visit and for follow-up with them and/or the need for any referrals to a consulting specialist. The emergency department will also refer you to a specialist when appropriate. This referral assures that you have the opportunity for follow-up care with a specialist. All of these measure are taken in an effort to provide you with optimal care, which includes your follow-up. Under all circumstances we always encourage you to contact your private physician who remains a resource for coordinating your care. When calling for follow-up care, please make the office aware that this follow-up is from your recent emergency room visit. If for any reason you are refused follow-up, please contact the Emergency Department at and asked to speak to the emergency department charge nurse. Please follow up with your primary care physician. If you do not have a primary care physician, see below: [facility] [address] [place] [id number] [facility] [address] [place] [phone] Sepsis Event Note (ED) - Evaluation Sepsis Screening Result: No Definite Risk - Focused Exam Vital Signs: Vital Signs Temp Pulse Resp BP Pulse Ox 07/22/20 12:30 96.5 F L 94 18 113/71 96 - My Orders Last 24 Hours: My Active Orders 07/22/20 12:58 EKG Documentation Completion [RC] STAT Pulse Oximetry [RC] ASDIRECTED Sodium Chloride 0.9% [Saline Flush] 10 ml FLUSH ASDIRECTED PRN Sodium Chloride 0.9% [Saline Flush] 2.5 ml FLUSH ASDIRECTED PRN Saline Lock Insert [OM.PC] Stat 07/22/20 15:15 CTA Chest W WO Contrast [Ang Chest] [CT] Stat - Assessment/Plan Last 24 Hours: My Active Orders 07/22/20 12:58 EKG Documentation Completion [RC] STAT Pulse Oximetry [RC] ASDIRECTED Sodium Chloride 0.9% [Saline Flush] 10 ml FLUSH ASDIRECTED PRN Sodium Chloride 0.9% [Saline Flush] 2.5 ml FLUSH ASDIRECTED PRN Saline Lock Insert [OM.PC] Stat 07/22/20 15:15 CTA Chest W WO Contrast [Ang Chest] [CT] Stat
--- NOTE | 2020-07-22 14:20 | CR ---
HISTORY: COVID-19 positive. Continued shortness of breath. COMPARISON: CT of the chest and portable chest radiograph from 07/14/2020 FINDINGS: A portable erect AP view of the chest was obtained at 1335 hours. There has been slight worsening of the mild patchy right basilar infiltrate, remaining mild. There has been distinct improvement in the previously seen left perihilar and basilar infiltrates, nearly completely resolving in the perihilar region and now mild in the left basilar region. There are no new areas of infiltrate. There is no sign of any pleural effusion. The heart remains normal in size. The mediastinum is normal in appearance. The osseous structures are normal in appearance for the patient`s age. IMPRESSION: Slight worsening of mild patchy right basilar infiltrate. Distinct improvement in infiltrates in the left perihilar lung and left lung base, with continued mild patchy left basilar infiltrate. Dictated by Franck Reece MD @ Jul 22 2020 2:16PM Signed by Dr. Franck Reece @ Jul 22 2020 2:19PM
[2020-07-22 14:22] LABS: BLOOD UREA NITROGEN,BUN 13 mg/dL (7.0-18.0); CHLORIDE,CL 102 mmol/L (98-107); GLUCOSE RANDOM 113 mg/dL (74-106); POTASSIUM,K 4.1 mmol/L (3.5-5.1); SODIUM,NA 135 mmol/L (136-145)
[2020-07-22] MEDS ORDERED: Iopamidol 755 MG/ML 500 ML Multipack Bottle IVPUSH STA (16:20)
[2020-07-22 17:51] VITALS: PULSE 96
--- NOTE | 2020-07-23 12:03 | CT ---
EXAM DATE: 07/22/20 PATIENT'S AGE: 44 Patient: ANTONINA SUBRAMANIAN Facility: [facility] Site . Site : [id number] Study: CT-Chest Angio -07/22/2020 3:22:04 PM Ordering Physician: Baldemar Toledo Final Report: Indication: Elevated D-dimer, shortness of breath Technique: Volumetric multidetector CT images of the chest were obtained after the administration of IV contrast. 75 cc Isovue 370 Comparison: CT angiography of the chest July 14 2020 Findings: The thoracic inlet and thyroid gland are unremarkable. The thoracic aorta is nonaneurysmal. There is no central filling defect to suggest pulmonary embolism. There are reactive appearing mediastinal, hilar and subcarinal lymph nodes similar to previous exam. There is mild central bronchial thickening and traction bronchiectasis predominantly of the upper and peripheral lower lobes. There is overall improved aeration of the bilateral hemithoraces with decreased solid consolidation with extensive residual interstitial, airspace and ground- glass opacities commensurate with likely evolving viral pneumonitis changes. There is no evidence of pulmonary mass or suspicious pulmonary nodule. The partially visualized upper abdominal viscera demonstrates hepatomegaly and hepatic steatosis. The thoracic vertebral body heights are grossly maintained with minimal marginal osteophyte formation. There is no significant spondylolisthesis or displaced fracture. Impression: No evidence of pulmonary embolus. Demonstration of evolving ground-glass and consolidative airspace opacities commensurate with history of viral infiltrate. Reactive mediastinal and hilar lymph nodes are again noted. Please note that all CT scans at this facility use dose modulation, iterative reconstruction, and/or weight-based dosing when appropriate to reduce radiation dose to as low as reasonably achievable. Dictated by Omar Smith MD @ Jul 22 2020 3:27PM Signed by: Omar Smith MD @07/22/2020 3:41:39 PM (Electronic Signature) Report Signed by Proxy. GAIL
== END 2020-07-22 17:08 | disposition home or self-care (01) ==
LOC: MW.ED 11:44
DX: U07.1 COVID-19 (principal); Z88.8 Allergy status to other drugs, medicaments and biological substances
CPT/HCPCS: 36415; 71045; 71275; 80053; 83605; 83735; 83880; 84484; 85025; 85379; 85610; 85730; 86140; 93005; 99285; A9270; J7030; Q9967

== ENCOUNTER 2020-11-23 17:50 | Emergency (ER) | payer BC ==
[2020-11-23] MEDS ORDERED: Sodium Chloride 0.9% 10 ML Syringe FLUSH PRN (18:15)
[2020-11-23] MEDS ORDERED: LORazepam 2 MG/ML SDV IVPUSH ONE (18:15)
[2020-11-23] MEDS ORDERED: Sodium Chloride 0.9% 2.5 ML Syringe FLUSH PRN (18:15)
[2020-11-23] MEDS ORDERED: Ondansetron 4 MG/2 ML SDV IVPUSH ONE (18:15)
[2020-11-23] MEDS ORDERED: Sodium Chloride 0.9% 1,000 ML IV ONE ×2 (18:17→19:39)
[2020-11-23] MEDS ORDERED: Ketorolac 30 MG/ML SDV IVPUSH ONE (18:18)
[2020-11-23] MEDS ORDERED: diphenhydrAMINE 50 MG/ML SDV IVPUSH ONE (18:18)
--- NOTE | 2020-11-23 18:20 | EDM.PDOC ---
<Tre Mcdermott - Last Filed: 11/23/20 20:27> ED HPI GENERAL MEDICAL PROBLEM - General Chief Complaint: Fever Stated Complaint: RECENT VACCINE, HIGH FEVER Time Seen by Provider: 11/23/20 18:08 - Related Data Allergies Allergy/AdvReac Type Severity Reaction Status Date / Time aspirin Allergy Itching Verified 11/23/20 18:13 Home Meds: Home Meds Ondansetron [Zofran ODT] 4 mg PO Q6H PRN #14 tab.dis 11/23/20 [Rx] Course - Re-Assessments/Exams Free Text/Narrative Re-Assessment/Exam: 11/23/20 19:01 Patient care transition from Dr. Alas pending labs and reassessment after fluids and medications. 11/23/20 20:27 Labs are unremarkable. Patient's heart rate is decreasing after IV fluid bolus. Will discharge with nausea medications. Departure - Departure Time of Disposition: 20:27 Disposition: Home, Self-Care 01 Condition: Good Clinical Impression: Myalgia Fever Qualifiers: Fever type: unspecified Qualified Code(s): R50.9 - Fever, unspecified - Discharge Information Prescriptions: Ondansetron [Zofran ODT] 4 mg PO Q6H PRN #14 tab.dis PRN Reason: Nausea Instructions: Muscle Pain, Adult Referrals: PCP,None [Primary Care Provider] - Forms: ED Department Discharge Additional Instructions: Use [id number] ibuprofen or naproxen or Tylenol for pain. I wrote a prescription for vomiting medicine. [facility] [address] [place] [address] [id number] [address] [id number] The following information is given to patients seen in the emergency department who are being discharged to home. This information is to outline your options for follow-up care. We provide all patients seen in our emergency department with a follow-up referral. The need for follow-up, as well as the timing and circumstances, are variable depending upon the specifics of your emergency department visit. If you don't have a primary care physician on staff, we will provide you with a referral. We always advise you to contact your personal physician following an emergency department visit to inform them of the circumstance of the visit and for follow-up with them and/or the need for any referrals to a consulting specialist. The emergency department will also refer you to a specialist when appropriate. This referral assures that you have the opportunity for follow-up care with a specialist. All of these measure are taken in an effort to provide you with optimal care, which includes your follow-up. Under all circumstances we always encourage you to contact your private physician who remains a resource for coordinating your care. When calling for follow-up care, please make the office aware that this follow-up is from your recent emergency room visit. If for any reason you are refused follow-up, please contact the [facility] Emergency Department at and asked to speak to the emergency department charge nurse. <Jay Alas - Last Filed: 11/24/20 11:14> ED HPI GENERAL MEDICAL PROBLEM - History of Present Illness INITIAL COMMENTS - FREE TEXT/NARRATIVE: History of present illness: [] Patient has severe headache abdominal pain muscle aches especially in the forearms. She is nauseated and feels like she cannot keep anything down. She has a fever as well. She got COVID-19 vaccine yesterday with her and he did not get any symptoms at all. Is on medicine for chronic anxiety. Review of systems: As per history of present illness and below otherwise all systems reviewed and negative. Past medical history: As per history of present illness and as reviewed below otherwise noncontributory. Surgical history: As per history of present illness and as reviewed below otherwise noncontributory. Social history: No reported history of drug or alcohol abuse. Family history: As per history of present illness and as reviewed below otherwise noncontributory. Physical exam: Constitutional - well developed, well-nourished and in no acute distress HEENT - normocephalic, no evidence of trauma - external nose and mouth normal - no mass in neck and no JVD - mucosae moist EYES - full EOM, PERRL, no icterus - no evidence of inflammation, injection, or drainage Respiratory - no respiratory distress, equal bilateral expansion, lungs clear to auscultation and no abnormal lung sounds Cardiovascular - Regular Rhythm with S1 and S2 appreciated and no murmur, gallop or rub. GI - abdomen soft without distension or organomegaly - normal bowel sounds - no guard or rebound Musculoskeletal no gross deformity of long bones or joints - no tenderness, swelling or edema Neurologic - Alert and oriented times four - CN II-XII grossly intact - motor sensory and coordination symmetrically normal Psychiatric - appropriate mood and affect with normal thought content Hematologic - No petechiae or purpura - mucosa appropriate color and sclera not pale - normal nail bed color and refill Integument - no rash or evidence of trauma - normal turgor Diagnostics: [] Therapeutics: [] Impression: [] Plan: [] Definitive disposition and diagnosis as appropriate pending reevaluation and review of above. generalized bodyaches Pain Score (Numeric/FACES): 8 Past Medical History - Past Health History Medical/Surgical History: Denies Medical/Surgical History Respiratory History: Reports: Other (See Below) Other Respiratory History: covid19 Gastrointestinal History: Reports: Other (See Below) Other Gastrointestinal History: occasional heartburn with Genitourinary History: Reports: None [employer] History: Reports: , Spontaneous Psychiatric History: Reports: Anxiety Endocrine/Metabolic History: Reports: Diabetes, Gestational Hematologic History: Reports: None Oncologic (Cancer) History: Reports: None - Infectious Disease History Infectious Disease History: Reports: Novel Coronavirus - Past Surgical History Head Surgeries/Procedures: Reports: None Female Surgical History: Reports: Section Social & Family History - Family History Family Medical History: Unobtainable - Caffeine Use Caffeine Use: Reports: None ED ROS GENERAL - Review of Systems Review Of Systems: Comprehensive ROS is negative, except as noted in HPI. ED EXAM, GENERAL - Physical Exam Exam: See Below Free Text/Narrative:: My physical exam as in the HPI Course - Vital Signs Text/Narrative:: I turned this patient over to my partner for definitive diagnosis Last Recorded V/S: Last Vital Signs Temp 37.7 C 11/23/20 17:54 Pulse 97 11/23/20 20:32 Resp 16 11/23/20 20:32 BP 105/46 L 11/23/20 20:32 Pulse Ox 96 11/23/20 20:32 - Orders/Labs/Meds Orders: Active Orders 24 hr Category Date Time Status Saline Lock Insert [OM.PC] Stat Oth 11/23/20 18:16 Ordered Labs: Laboratory Tests 11/23/20 11/23/20 Range/Units 19:02 19:02 WBC 7.61 (4.0-11.0) K/uL RBC 4.66 (4.30-5.90) M/uL Hgb 13.0 (12.0-16.0) g/dL Hct 40.6 (36.0-46.0) % MCV 87.1 (80.0-98.0) fL MCH 27.9 (27.0-32.0) pg MCHC 32.0 (31.0-37.0) g/dL RDW Std Deviation 41.7 (28.0-62.0) fl RDW Coeff of Ashley 13 (11.0-15.0) % Plt Count 294 (150-400) K/uL MPV 10.60 (7.40-12.00) fL Neut % (Auto) 82.9 H (48.0-80.0) % Lymph % (Auto) 11.6 L (16.0-40.0) % [place] % (Auto) 5.1 (0.0-15.0) % Eos % (Auto) 0.1 (0.0-7.0) % Baso % (Auto) 0.3 (0.0-1.5) % Neut # (Auto) 6.3 H (1.4-5.7) K/uL Lymph # (Auto) 0.9 (0.6-2.4) K/uL [place] # (Auto) 0.4 (0.0-0.8) K/uL Eos # (Auto) 0.0 (0.0-0.7) K/uL Baso # (Auto) 0.0 (0.0-0.1) K/uL Nucleated RBC % 0.0 /100WBC Nucleated RBCs # 0 K/uL Sodium 134 L (136-145) mmol/L Potassium 4.7 (3.5-5.1) mmol/L Chloride 96 L (98-107) mmol/L Carbon Dioxide 24.1 (21.0-32.0) mmol/L BUN 17 (7.0-18.0) mg/dL Creatinine 1.1 H (0.6-1.0) mg/dL Est Cr Clr Drug Dosing 51.62 mL/min Estimated GFR (MDRD) 54.0 ml/min Glucose 150 H (74-106) mg/dL Calcium 9.5 (8.5-10.1) mg/dL Total Bilirubin 0.4 (0.2-1.0) mg/dL AST 42 H (15-37) IU/L ALT 24 (14-63) IU/L Alkaline Phosphatase 82 (46-116) U/L Total Protein 8.9 H (6.4-8.2) g/dL Albumin 3.9 (3.4-5.0) g/dL Globulin 5.0 H (2.6-4.0) g/dL Albumin/Globulin Ratio 0.8 L (0.9-1.6) Meds: Medications Discontinued Medications Generic Name Dose Route Start Last Admin Trade Name Freq PRN Reason Stop Dose Admin Diphenhydramine HCl 25 mg 11/23/20 18:18 11/23/20 19:07 Diphenhydramine 50 Mg/Ml Sdv IVPUSH 11/23/20 18:19 25 mg ONETIME ONE Administration Sodium Chloride 1,000 mls @ 999 mls/hr 11/23/20 18:17 11/23/20 19:03 Normal Saline IV 11/23/20 19:17 999 mls/hr .Bolus ONE Administration Sodium Chloride 1,000 mls @ 999 mls/hr 11/23/20 19:39 11/23/20 20:01 Normal Saline IV 11/23/20 20:39 999 mls/hr .Bolus ONE Administration Ketorolac Tromethamine 15 mg 11/23/20 18:18 11/23/20 19:11 Ketorolac 30 Mg/Ml Sdv IVPUSH 11/23/20 18:19 15 mg ONETIME ONE Administration Lorazepam 1 mg 11/23/20 18:15 11/23/20 19:11 Lorazepam 2 Mg/Ml Sdv IVPUSH 11/23/20 18:16 1 mg ONETIME ONE Administration Ondansetron HCl 4 mg 11/23/20 18:15 11/23/20 19:11 Ondansetron 4 Mg/2 Ml Sdv IVPUSH 11/23/20 18:16 4 mg ONETIME ONE Administration Sodium Chloride 10 ml 11/23/20 18:15 11/23/20 19:06 Sodium Chloride 0.9% 10 Ml Syringe FLUSH 10 ml ASDIRECTED PRN Administration Keep Vein Open Sodium Chloride 2.5 ml 11/23/20 18:15 11/23/20 19:06 Sodium Chloride 0.9% 2.5 Ml Syringe FLUSH 2.5 ml ASDIRECTED PRN Administration Keep Vein Open Departure - Departure Condition: Good Sepsis Event Note (ED) - Evaluation Sepsis Screening Result: No Definite Risk - My Orders Last 24 Hours: My Active Orders 11/23/20 18:16 Saline Lock Insert [OM.PC] Stat - Assessment/Plan Last 24 Hours: My Active Orders 11/23/20 18:16 Saline Lock Insert [OM.PC] Stat
[2020-11-23 19:31] LABS: CARBON DIOXIDE,CO2 24.1 mmol/L (21.0-32.0); POTASSIUM,K 4.7 mmol/L (3.5-5.1)
[2020-11-23 20:33] VITALS: BP 105/46; PULSE 97
== END 2020-11-23 20:36 | disposition home or self-care (01) ==
LOC: MW.ED 17:50
DX: M79.10 Myalgia, unspecified site (principal); R50.9 Fever, unspecified; Z88.6 Allergy status to analgesic agent
CPT/HCPCS: 36415; 80053; 85025; 96374; 96375; 99283; J1200; J1885; J2060; J2405; J7030

== ENCOUNTER 2022-10-04 16:38 | Emergency (ER) | payer BC, OTHER ==
[2022-10-04 16:51] VITALS: BP 113/72; PULSE 112
[2022-10-04 17:39] LABS: CORONAVIRUS COVID-19 NAA POSITIVE (NEGATIVE); INFLUENZA A NAA NEGATIVE (NEGATIVE); INFLUENZA B NAA NEGATIVE (NEGATIVE); RESPIRATORY SYNCYTIAL VIR NAA NEGATIVE (NEGATIVE)
[2022-10-04] MEDS ORDERED: Acetaminophen/Codeine 120-12 MG/5 ML Soln 5 ML UD Cup PO ONE (17:43)
== END 2022-10-04 18:06 | disposition home or self-care (01) ==
LOC: MW.ED 16:38
DX: U07.1 COVID-19 (principal); B86 Scabies; Z88.4 Allergy status to anesthetic agent
CPT/HCPCS: 0241U; 99283; A9270

== ENCOUNTER 2023-01-02 12:35 | Emergency (ER) | payer BC ==
[2023-01-02] MEDS ORDERED: diphenhydrAMINE 50 MG/ML SDV IVPUSH ONE (12:55)
[2023-01-02] MEDS ORDERED: Sodium Chloride 0.9% 1,000 ML IV ONE ×2 (12:55→13:29)
[2023-01-02] MEDS ORDERED: Metoclopramide 10 MG/2 ML SDV IVPUSH ONE (12:55)
[2023-01-02 13:26] LABS: ACETAMINOPHEN <2.0 ug/mL; BLOOD UREA NITROGEN,BUN 14 mg/dL (7.0-18.0); CARBON DIOXIDE,CO2 20.9 mmol/L (21.0-32.0); CHLORIDE,CL 100 mmol/L (98-107); GLUCOSE RANDOM 375 mg/dL (74-106); LIPASE 149 U/L (73-393); POTASSIUM,K 3.5 mmol/L (3.5-5.1); SODIUM,NA 137 mmol/L (136-145)
[2023-01-02 13:27] LABS: ESTIMATED GFR 63 mL/min (>60)
[2023-01-02 14:18] VITALS: BP 126/70; PULSE 98
== END 2023-01-02 15:00 | disposition home or self-care (01) ==
LOC: MW.ED 12:35
DX: R11.2 Nausea with vomiting, unspecified (principal); R51.9 Headache, unspecified; T39.95XA Adverse effect of unspecified nonopioid analgesic, antipyretic and antirheumatic, initial encounter; E11.9 Type 2 diabetes mellitus without complications; Z86.16 Personal history of COVID-19; Z79.899 Other long term (current) drug therapy; Z88.6 Allergy status to analgesic agent
CPT/HCPCS: 36415; 70450; 80053; 80143; 80179; 82009; 83690; 84703; 85025; 96361; 96374; 96375; 99284; J1200; J2765; J7030

== ENCOUNTER 2024-06-01 21:04 | Emergency (ER) | payer BC ==
[2024-06-01 21:31] LABS: APPEARANCE,URINE SLT CLOUDY; BILIRUBIN,URINE NEGATIVE (NEGATIVE); COLOR,URINE YELLOW; GLUCOSE,URINE NEGATIVE (NEGATIVE); KETONES,URINE NEGATIVE (NEGATIVE); LEUKOCYTE ESTERASE,URINE MODERATE (NEGATIVE); NITRITE,URINE NEGATIVE (NEGATIVE); OCCULT BLOOD,URINE LARGE (NEGATIVE); PROTEIN,URINE NEGATIVE (NEGATIVE); UROBILINOGEN,URINE 0.2 EU/dL (<2.0)
[2024-06-01 21:39] LABS: BACTERIA,URINE FEW (NEGATIVE); EPITHELIAL CELLS,URINE FEW (NONE-FEW); WBC,URINE TOO NUMEROUS TO CT (0-5/HPF)
[2024-06-01 21:40] LABS: BASOPHILS ABSOLUTE AUTO 0.05 K/uL (0.00-0.20); BASOPHILS PERCENT AUTO 0.5 % (0.0-1.0); EOSINOPHILS ABSOLUTE AUTO 0.27 K/uL (0.00-0.45); EOSINOPHILS PERCENT AUTO 2.7 % (0.0-6.0); HEMATOCRIT 37.2 % (37.0-47.0); HEMOGLOBIN 11.9 g/dL (12.0-16.0); IMMATURE GRAN ABSOLUTE AUTO 0.01 K/uL (0.00-0.05); IMMATURE GRAN PERCENT AUTO 0.1 % (0.0-0.4); LYMPHOCYTES ABSOLUTE AUTO 3.11 K/uL (1.00-4.80); LYMPHOCYTES PERCENT AUTO 30.6 % (24.0-44.0); MEAN CORPUSCULAR HEMOGLOBIN 27.9 pg (28.0-32.0); MEAN CORPUSCULAR VOLUME 87.1 fL (83.0-99.0); MONOCYTES ABSOLUTE AUTO 0.61 K/uL (0.00-0.80); NEUTROPHILS PERCENT AUTO 60.1 % (41.0-71.0); PLATELET COUNT,PLT 264 K/uL (150-400); RED BLOOD CELL COUNT 4.27 M/uL (4.10-5.30); WHITE BLOOD CELL COUNT,WBC 10.15 K/uL (3.9-11.3)
[2024-06-01] MEDS: Ondansetron 4 MG/2 ML SDV IVPUSH ONE (21:44)
[2024-06-01] MEDS: Sodium Chloride 0.9% 1,000 ML IV ONE ×2 (21:44→22:17)
[2024-06-01] MEDS: Morphine 2 MG/ML SYRINGE IVPUSH ONE (21:44)
[2024-06-01] MEDS: Sodium Chloride 0.9% 10 ML Syringe FLUSH PRN (21:45)
[2024-06-01] MEDS: Acetaminophen 500 MG Tab PO ONE (21:45)
[2024-06-01 22:01] LABS: A/G RATIO 0.8 (0.9-1.6); ALBUMIN 3.4 g/dL (3.4-5.0); BILIRUBIN TOTAL 0.2 mg/dL (0.2-1.0); CALCIUM 8.7 mg/dL (8.5-10.1); CARBON DIOXIDE,CO2 30.7 mmol/L (21.0-32.0); CREATININE 0.7 mg/dL (0.6-1.0); EST CRCL DRUG DOSING (CG) 75.05 mL/min; POTASSIUM,K 3.9 mmol/L (3.5-5.1); PROTEIN TOTAL,TP 7.5 g/dL (6.4-8.2)
[2024-06-01] MEDS: cefTRIAXone 2 GM in Sodium Chloride 0.9% 50 ML IV ONE ×3 (22:17→22:21)
[2024-06-01] MEDS: Iopamidol 755 MG/ML 500 ML Multipack Bottle IVPUSH STA (22:50)
[2024-06-02] MEDS: Ketorolac 30 MG/ML SDV IVPUSH ONE (00:13)
[2024-06-02 01:16] VITALS: BP 125/75; PULSE 85
== END 2024-06-02 01:10 | disposition home or self-care (01) ==
LOC: MW.ED 21:04
DX: N30.01 Acute cystitis with hematuria (principal); M54.50 Low back pain, unspecified; R10.84 Generalized abdominal pain; R30.0 Dysuria; E78.00 Pure hypercholesterolemia, unspecified; Z79.899 Other long term (current) drug therapy; Z88.6 Allergy status to analgesic agent; Z75.8 Other problems related to medical facilities and other health care
CPT/HCPCS: 36415; 74177; 80053; 81001; 83605; 83690; 84703; 85025; 96365; 96375; 99284; A9270; J0696; J1885; J2270; J2405; J3490; J7030; Q9967

== ENCOUNTER 2024-06-27 10:37 | Emergency (ER) | payer BC ==
[2024-06-27 12:05] LABS: CORONAVIRUS COVID-19 NAA POSITIVE (NEGATIVE); INFLUENZA A NAA NEGATIVE (NEGATIVE); INFLUENZA B NAA NEGATIVE (NEGATIVE); RESPIRATORY SYNCYTIAL VIR NAA NEGATIVE (NEGATIVE)
[2024-06-27 12:36] VITALS: BP 129/75; PULSE 119
== END 2024-06-27 14:11 | disposition home or self-care (01) ==
LOC: MW.ED 10:37
DX: U07.1 COVID-19 (principal); E78.00 Pure hypercholesterolemia, unspecified; Z79.899 Other long term (current) drug therapy; Z88.6 Allergy status to analgesic agent; Z75.8 Other problems related to medical facilities and other health care
CPT/HCPCS: 0241U; 99284